=== PATIENT | female | born 1965 | race Caucasian/White ===

== ENCOUNTER 2018-08-14 13:15 | Emergency (ER) | payer SELFPAY ==
[2018-08-14 14:09] LABS: #Basophils 0.1 thou/uL (0.0-0.2); #Eosinphils 0.1 thou/uL (0.0-0.7); #Lymphocytes 2.4 thou/uL (1.20-3.40); #Monocytes 0.5 thou/uL (0.11-0.59); %Basophils 0.8 % (0.0-1.0); %Eosinophils 1.7 % (0.0-10.0); %Lymphocytes 39.8 % (21.0-51.0); %Monocytes 7.9 % (0.0-10.0); %Neutrophils 49.8 % (42.0-75.0); Hemoglobin 12.8 g/dL (12.0-16.0); Mean Corpuscular HGB CONC 32.5 g/dL (32.0-36.0); Mean Corpuscular Hemoglobin 29.6 pg (27.0-31.0); Mean Corpuscular Volume 91.1 fL (78.0-98.0); Mean Platelet Volume 8.5 fL (7.4-10.4); Platelet Count 310 thou/uL (130-400); RBC Distribution Width 12.9 % (11.5-14.5); Red Blood Cell (RBC) Count 4.34 mill/uL (4.20-5.40); White Blood Cell (WBC) Count 6.1 thou/uL (4.8-10.8)
[2018-08-14 14:34] LABS: ALT (SGPT) 13 U/L (8-55); AST (SGOT) 17 U/L (5-34); Albumin 3.7 g/dL (3.5-5.0); Alkaline Phosphatase 87 U/L (40-150); Anion Gap 11 mmol/L (10-20); BUN (Urea Nitrogen) 15 mg/dL (9.8-20.1); Bilirubin, Total 0.4 mg/dL (0.2-1.2); Calc. Creatinine Clearance 0 mL/min (70-130); Calcium 9.2 mg/dL (7.8-10.44); Carbon Dioxide 22 mmol/L (22-29); Chloride 111 mmol/L (98-107); Estimated GFR-MDRD 72; Globulin 3.7 g/dL (2.4-3.5); Glucose 78 mg/dL (70-105); Lipase 51 U/L (8-78); Protein, Total 7.4 g/dL (6.0-8.3); Sodium 140 mmol/L (136-145)
[2018-08-14 15:22] LABS: Bilirubin Negative (Negative); Blood, Urine Negative (Negative); Clarity CLEAR (Clear); Glucose, Urine (Dipstick) Negative (Negative); Leukocyte Small (Negative); Nitrite Negative (Negative); Protein, Urine (Dipstick) Negative (Neg-Trace); Specific Gravity, Urine 1.018 (1.002-1.036); Urobilinogen 0.2 mg/dL (0.2-1.0); pH, Urine 6.5 (5.0-9.0)
[2018-08-14 15:25] LABS: Bacteria/HPF Rare-Few HPF (None Seen); Hyaline Casts/LPF 0-3 HYALINE CAST LPF (0-3 Hyaline); Pathc Cast-AUWi Flag 0.58 (0-2.49); RBC/HPF 0-3 HPF (0-3)
== END 2018-08-14 16:08 | disposition home or self-care (01) ==
LOC: ERS 13:15
DX: R10.11 Right upper quadrant pain (principal); I12.0 Hypertensive chronic kidney disease with stage 5 chronic kidney disease or end stage renal disease; N18.6 End stage renal disease; E11.22 Type 2 diabetes mellitus with diabetic chronic kidney disease; F41.9 Anxiety disorder, unspecified; F31.9 Bipolar disorder, unspecified; F20.9 Schizophrenia, unspecified; F17.210 Nicotine dependence, cigarettes, uncomplicated
CPT/HCPCS: 36415; 80053; 81003; 81015; 83690; 85025; 87086; 99284

== ENCOUNTER 2018-09-17 16:09 | Emergency (ER) | payer SELFPAY ==
[2018-09-17 17:41] LABS: #Eosinphils 0.2 thou/uL (0.0-0.7); #Lymphocytes 1.9 thou/uL (1.20-3.40); #Monocytes 1.3 thou/uL (0.11-0.59); #Neutrophils 11.1 thou/uL (1.40-6.50); %Basophils 0.2 % (0.0-1.0); %Eosinophils 1.4 % (0.0-10.0); %Lymphocytes 13.2 % (21.0-51.0); %Monocytes 8.8 % (0.0-10.0); %Neutrophils 76.5 % (42.0-75.0); Hemoglobin 12.1 g/dL (12.0-16.0); Mean Corpuscular HGB CONC 32.4 g/dL (32.0-36.0); Mean Corpuscular Hemoglobin 29.8 pg (27.0-31.0); Mean Platelet Volume 8.8 fL (7.4-10.4); Platelet Count 211 thou/uL (130-400); RBC Distribution Width 12.1 % (11.5-14.5); Red Blood Cell (RBC) Count 4.07 mill/uL (4.20-5.40); White Blood Cell (WBC) Count 14.5 thou/uL (4.8-10.8)
[2018-09-17 17:55] LABS: ALT (SGPT) 18 U/L (8-55); AST (SGOT) 18 U/L (5-34); Albumin 3.6 g/dL (3.5-5.0); Alkaline Phosphatase 110 U/L (40-150); Anion Gap 15 mmol/L (10-20); BUN (Urea Nitrogen) 20 mg/dL (9.8-20.1); Bilirubin, Total 0.2 mg/dL (0.2-1.2); Calc. Creatinine Clearance 0 mL/min (70-130); Calcium 9.5 mg/dL (7.8-10.44); Carbon Dioxide 23 mmol/L (22-29); Chloride 108 mmol/L (98-107); Estimated GFR-MDRD 63; Globulin 3.9 g/dL (2.4-3.5); Glucose 89 mg/dL (70-105); Potassium 4.6 mmol/L (3.5-5.1); Protein, Total 7.5 g/dL (6.0-8.3); Sodium 141 mmol/L (136-145)
[2018-09-17] MEDS ORDERED: Ondansetron ODT 4 MG TAB ONE (19:01)
--- NOTE | 2018-09-17 20:12 | RAD ---
THREE VIEWS RIGHT FOOT: 09/17/18 HISTORY: Dropped AC unit on foot two months ago. FINDINGS: There is a small avulsion fracture seen involving the medial aspect base of the proximal phalanx of t he second toe. There is a bifid lateral sesamoid bone present. Mild osteoarthritis involving the firs t metatarsophalangeal joint. The Lisfranc joint is normally aligned. There is no additional fracture or dislocation seen. There is a corticated osseous density seen just lateral to the proximal aspect of the cuboid bone which may r epresent a small exostosis. This is not thought to represent an avulsion injury and is not seen on th e opposing images. There is prominent subcutaneous soft tissue swelling at the dorsal aspect of the f oot. No other findings. IMPRESSION: 1. Small avulsion fracture base of the proximal phalanx right second toe. 2. Subcutaneous soft tissue swelling dorsal aspect of the foot. POS: [facility]
== END 2018-09-17 19:11 | disposition home or self-care (01) ==
LOC: ERS 16:09
DX: S92.531A Displaced fracture of distal phalanx of right lesser toe(s), initial encounter for closed fracture (principal); E11.9 Type 2 diabetes mellitus without complications; I13.2 Hypertensive heart and chronic kidney disease with heart failure and with stage 5 chronic kidney disease, or end stage renal disease; I50.9 Heart failure, unspecified; N18.6 End stage renal disease; F41.9 Anxiety disorder, unspecified; F31.9 Bipolar disorder, unspecified; F20.9 Schizophrenia, unspecified; F17.210 Nicotine dependence, cigarettes, uncomplicated; Z79.899 Other long term (current) drug therapy; W20.8XXA Other cause of strike by thrown, projected or falling object, initial encounter
CPT/HCPCS: 36415; 80053; 85025; 85652; 86140; 99281; Q0162

== ENCOUNTER 2018-09-19 14:53 | Inpatient (IN) | payer SELFPAY ==
[2018-09-19] MEDS ORDERED: Morphine 4 MG/ML VIAL ONE (15:46)
[2018-09-19] MEDS ORDERED: Ondansetron PF 4 MG/2 ML Vial ONE (15:46)
--- NOTE | 2018-09-19 16:15 | RAD ---
EXAM: RIGHT FOOT THREE VIEWS: 09/19/18 HISTORY: Infection, recent trauma. COMPARISON: Examination from two days ago, 09/17/18. FINDINGS: Again noted is generalized soft tissue swelling including the dorsal aspect of the foot. Minimally di splaced chip type fracture off the medial base of the proximal phalanx of the second toe. No other ac lone pine fracture or dislocation. IMPRESSION: Stable appearing chip type fracture off the medial base of the proximal phalanx of the second toe wit h dorsal soft tissue swelling and incidental bipartite lateral first metatarsophalangeal joint sesamo id. POS: [facility]
[2018-09-19] MEDS ORDERED: Cefepime 2 GM VIAL ONE (16:42)
[2018-09-19 17:12] LABS: #Eosinphils 0.2 thou/uL (0.0-0.7); #Lymphocytes 1.7 thou/uL (1.20-3.40); #Monocytes 1.3 thou/uL (0.11-0.59); %Basophils 0.1 % (0.0-1.0); %Eosinophils 0.9 % (0.0-10.0); %Lymphocytes 9.4 % (21.0-51.0); %Neutrophils 82.6 % (42.0-75.0); Hemoglobin 12.2 g/dL (12.0-16.0); Mean Corpuscular HGB CONC 32.2 g/dL (32.0-36.0); Mean Corpuscular Hemoglobin 29.4 pg (27.0-31.0); Mean Corpuscular Volume 91.4 fL (78.0-98.0); Mean Platelet Volume 8.7 fL (7.4-10.4); Platelet Count 259 thou/uL (130-400); RBC Distribution Width 12.1 % (11.5-14.5); Red Blood Cell (RBC) Count 4.15 mill/uL (4.20-5.40); White Blood Cell (WBC) Count 18.2 thou/uL (4.8-10.8)
[2018-09-19] MEDS ORDERED: Acetaminophen 325 MG TAB ONE (17:28)
[2018-09-19] MEDS ORDERED: Vancomycin HCl 1.5 GM in Sodium Chloride 0.9% 250 ML 300 ML IVPB SCH (17:30)
[2018-09-19 17:33] LABS: ALT (SGPT) 19 U/L (8-55); AST (SGOT) 16 U/L (5-34); Albumin 3.6 g/dL (3.5-5.0); Alkaline Phosphatase 126 U/L (40-150); Anion Gap 12 mmol/L (10-20); BUN (Urea Nitrogen) 11 mg/dL (9.8-20.1); Bilirubin, Total 0.2 mg/dL (0.2-1.2); CK (CPK) 98 U/L (29-168); Calc. Creatinine Clearance 0 mL/min (70-130); Calcium 9.2 mg/dL (7.8-10.44); Carbon Dioxide 26 mmol/L (22-29); Chloride 105 mmol/L (98-107); Estimated GFR-MDRD 83; Globulin 4.2 g/dL (2.4-3.5); Glucose 98 mg/dL (70-105); Potassium 4.2 mmol/L (3.5-5.1); Protein, Total 7.8 g/dL (6.0-8.3); Sodium 139 mmol/L (136-145)
[2018-09-19] MEDS ORDERED: Guaifenesin DM 100-10/5 ML UDCUP PO PRN (18:17)
[2018-09-19] MEDS ORDERED: Senokot S 8.6-50 MG TAB PO PRN (18:17)
[2018-09-19] MEDS ORDERED: Ondansetron PF 4 MG/2 ML Vial IVP PRN (18:17)
[2018-09-19] MEDS ORDERED: Fentanyl 100 MCG/2 ML VIAL ONE ×2 (18:53→19:45)
--- NOTE | 2018-09-19 19:01 | CON ---
DATE OF CONSULTATION: 09/19/2018 CONSULTING PHYSICIAN: Dr. Barnes. REASON FOR CONSULTATION: Right foot infection. HISTORY OF PRESENT ILLNESS: The patient is a 53-year-old obese white female. She says about 12 days ago, she dropped a dresser on her foot and injured it. At that time, she went to another hospital and was seen. Medications were ordered, but she never got these filled. She is a poor historian and to some extent, noncompliant. She apparently has some history of schizophrenia, but she told me that she was taking no current medications. She apparently is taking Abilify. She was seen here few days ago and there was no significant problem with her foot other than pain. She returned today secondary to increased pain. She now has marked swelling with a large bulla on the plantar aspect of the foot and some swelling across the dorsum as well. CBC in the emergency room reveals elevated white blood cell count of 18,000. X-ray was obtained, does reveal a fracture of the proximal 2nd phalanx. This is a chip fracture of the proximal rather than a bony transection. PAST MEDICAL HISTORY: According to her medical record (she told me none of this). She has a history of schizophrenia, anxiety, bipolar disorder. There is also apparently a history of hypertension and possible diabetes and possibly hepatitis. PAST SURGICAL HISTORY: Tubal ligation and some form of neck incision, although, she cannot tell me why she had this neck incision or exactly what was done. MEDICATIONS: She denied to me taking any medications, but according to other history, she is supposed to be taking Latuda, Abilify, hydrochlorothiazide, gabapentin, lisinopril. ALLERGIES: CLINDAMYCIN, PENICILLIN, AND ASPIRIN. PERSONAL AND SOCIAL HISTORY: She is with 3 children. She currently lives with an aunt of hers. She moved here recently from [place]. She smokes 6 to 7 cigarettes per day. She does not drink alcohol. She tells me she uses marijuana fairly regularly. She currently does not have a job, but was supposed to start a job when she injured her foot. REVIEW OF SYSTEMS: Otherwise unremarkable. She does give some possible history of a seizure disorder, but she has apparently never really been diagnosed with this. FAMILY HISTORY: Noncontributory. PHYSICAL EXAMINATION: VITAL SIGNS: She is tachycardic with a pulse of 110, blood pressure is elevated at 140/100. She is afebrile. GENERAL: She is an obese, somewhat rambling white female, resting in bed. She is alert and cooperative. She complains of appropriate pain in her foot. HEAD, EYES, EARS, NOSE, AND THROAT: Unremarkable. NECK: Supple without mass or tenderness. LUNGS: Clear to auscultation throughout. CARDIAC: Regular rate and rhythm without murmur. ABDOMEN: Obese, but soft and nontender. EXTREMITIES: She has easily palpable pedal pulses bilaterally. She has marked edema on the right foot. There is a discolored bulla on the plantar aspect in the arch of her foot. This appears to be about 4 cm in diameter. There is edema across the dorsum of the foot as well. The tenderness prevents adequate examination of this. ASSESSMENT: The patient with obvious abscess of the right foot. This is the cause of her elevated white blood cell count, tachycardia. She will be admitted to the hospital per the hospitalist service and started on IV antibiotics. I recommended incision and drainage of her foot this evening. Cultures will be obtained of the drained fluid. She will require ongoing wound care and antibiotics. She will have to find a way of getting around without putting weight on the bottom of her foot as it heals. I have discussed all this in detail with the patient as well as potential risks. She understands and agrees to proceed with surgery at this time. Job ID: [id number]
[2018-09-19] MEDS ORDERED: Promethazine HCl 25 MG/ML VIAL SLOW IVP PRN (19:27)
[2018-09-19] MEDS ORDERED: PACU-Morphine 4MG/ML VIAL SLOW IVP PRN (19:27)
[2018-09-19] MEDS ORDERED: Promethazine HCl 25 MG/ML VIAL IM PRN (19:27)
[2018-09-19] MEDS ORDERED: Ondansetron HCl/PF 4 MG/2 ML Vial IVP PRN (19:27)
[2018-09-19] MEDS ORDERED: HYDROmorphone 2 MG/ML VIAL SLOW IVP PRN (19:27)
--- NOTE | 2018-09-19 20:27 | HP ---
REASON FOR ADMISSION: Right foot abscess. HISTORY OF PRESENTING ILLNESS: Patient gives history of dropping a dresser over her right foot in the forefoot area. Patient had come to emergency room on the , but prior to this, she had gone to [facility], where she had a right foot x-ray done, which showed fracture. She had swelling and pain on the . She was diagnosed with a Cholo fracture at the base of second phalanx of right foot. She says she started developing a blister, which has not ruptured yet on the plantar aspect on the second and third metatarsal head area. This has gradually become big and the foot is swollen up to the ankle. She has excruciating pain at present. No fever as such at home. PAST MEDICAL AND SURGICAL HISTORY: History of hypertension, questionable history of hepatitis, schizophrenia, bipolar disorder, and tubal ligation. She has had some neck surgery in the past, which she tells is due to prior penicillin allergy related. CURRENT MEDICATIONS: Patient is on Latuda, hydrochlorothiazide, gabapentin, lisinopril, Ultram p.r.n., and Bactrim twice daily. She goes to [facility] in [place] and we will get accurate med list from there. ALLERGIES: TO ASPIRIN, CLINDAMYCIN, AND PENICILLIN. PERSONAL HISTORY: Smokes seven cigarettes a day. Also, smokes marijuana on a daily basis. Does not abuse other drugs or alcohol. She stays with her aunt, Ms. Hyatt. Patient is , has three children, one male and two females. FAMILY HISTORY: Mother is living, has a history of diabetes and hypertension. Father in his 70s from complications from coronary artery disease and diabetes. CODE STATUS: Full. Power of police clerk is her aunt, Ms. Olena Pham. REVIEW OF SYSTEMS: CONSTITUTIONAL: Negative for weight loss or gain, ability to conduct usual activities. SKIN: Negative for rash, itching. EYES: Negative for double vision, pain. ENT/MOUTH: Negative for nose bleeding, neck stiffness, pain, tenderness. CARDIOVASCULAR: Negative for palpitations, dyspnea on exertion, orthopnea. RESPIRATORY: Negative for shortness of breath, wheezing, cough, hemoptysis, fever or night sweats. GASTROINTESTINAL: Negative for poor appetite, abdominal pain, heartburn, nausea , vomiting, constipation, or diarrhea. GENITOURINARY: Negative for urgency, frequency, dysuria, nocturia. MUSCULOSKELETAL: Negative for pain, swelling. NEUROLOGIC/PSYCHIATRIC: Negative for anxiety, depression. ALLERGY/IMMUNOLOGIC: Negative for skin rash, bleeding tendency. PHYSICAL EXAMINATION: GENERAL: Patient is a 53-year-old female who is currently in pain from her right foot abscess. VITAL SIGNS: Blood pressure 154/90, pulse 110 per minute, respiratory rate 22 per minute, temperature 97.8 degrees Fahrenheit, and saturating 95% on room air. NECK: Supple. No elevated JVD. HEENT: Eyes; extraocular muscles intact. Pupils reacting to light. Oral cavity, mucous membranes are dry. No exudates or congestion. CARDIOVASCULAR: S1 and S2 heard. Regular rhythm. RESPIRATORY: Air entry 1+ bilateral. No rales or rhonchi. ABDOMEN: Soft. Bowel sounds heard. No tenderness, rigidity, or guarding. EXTREMITIES: Right foot, there appears to be a blister which is unruptured with purulent material inside. She also has erythema and edema of the whole foot up to the ankle. Peripheral pulses are 2+ bilateral. No ischemic gangrene of the toes. CENTRAL NERVOUS SYSTEM: No gross focal deficits noted. Patient moves all four extremities. PSYCHIATRIC: No obvious hallucinations or delusions at present. LABORATORY DATA: White count of 18, H and H 12 and 37, platelet count is 259 with 82% neutrophils. Electrolytes stable. BUN 11, creatinine 0.7. Lactic acid 2.5 , serum glucose 98. Liver enzymes within normal limits. Albumin is 3.6. X-RAY: Right foot x-ray done shows stable appearing chip type fracture at the medial base of the proximal phalanx of the second toe with dorsal soft tissue swelling and incidental bipartite lateral first metatarsophalangeal joint sesamoid. She has had a prior x-ray on the same foot on the , which showed small avulsion fracture at the base of the proximal phalanx of the right second toe. Subcutaneous soft tissue swelling on the dorsal aspect of the foot was seen then. CLINICAL IMPRESSION AND PLAN: Patient will be admitted to medical floor for right foot abscess. Dr. Bal is here evaluating patient. She will be going to OR shortly for incision and drainage of the abscess. She will be on vancomycin and cefepime. She has received a dose of cefepime with no allergic reaction as such. She will be closely monitored in view of prior history of severe allergy to penicillin per patient. She is kept n.p.o. for procedure now. She will also be on Morphine and Motrin for pain. We will obtain her home medication list from [facility] in [place]. We will continue her home dosages of Latuda and gabapentin as before. We will hold off on hydrochlorothiazide and lisinopril for now until she comes out of OR. Job ID: [id number] MTDD
[2018-09-19] MEDS ORDERED: Vancomycin HCl 1 GM in Premix Bag 1 BAG IVPB SCH (21:00)
[2018-09-19 21:36] LABS: Lactic Acid 0.8 mmol/L (0.5-2.2)
[2018-09-19 21:40] VITALS: BMI 37.8
[2018-09-19] MEDS: Sodium Chloride 0.9% 1,000 ML IV SCH (21:43)
[2018-09-19] MEDS: Cefepime 1 GM in Sodium Chloride 0.9% 100 ML IVPB SCH (21:46)
[2018-09-19] MEDS: Famotidine 20 MG TAB PO SCH (23:50)
[2018-09-20] MEDS: Vancomycin HCl 1.5 GM in Sodium Chloride 0.9% 250 ML 300 ML IVPB SCH ×2 (06:11→17:55)
[2018-09-20] MEDS: HYDROcodone/Acetaminophen 5/325 mg Tablet PO PRN ×3 (07:25→23:38)
[2018-09-20 07:36] LABS: #Lymphocytes 1.4 thou/uL (1.20-3.40); #Monocytes 0.7 thou/uL (0.11-0.59); #Neutrophils 14.3 thou/uL (1.40-6.50); %Basophils 0.2 % (0.0-1.0); %Eosinophils 0.1 % (0.0-10.0); %Lymphocytes 8.6 % (21.0-51.0); %Monocytes 4.1 % (0.0-10.0); %Neutrophils 87.2 % (42.0-75.0); Hemoglobin 10.4 g/dL (12.0-16.0); Mean Corpuscular HGB CONC 31.9 g/dL (32.0-36.0); Mean Corpuscular Hemoglobin 29.2 pg (27.0-31.0); Mean Corpuscular Volume 91.3 fL (78.0-98.0); Mean Platelet Volume 8.1 fL (7.4-10.4); Platelet Count 230 thou/uL (130-400); RBC Distribution Width 12.1 % (11.5-14.5); Red Blood Cell (RBC) Count 3.56 mill/uL (4.20-5.40); White Blood Cell (WBC) Count 16.4 thou/uL (4.8-10.8)
[2018-09-20 07:41] LABS: Hemoglobin A1c 4.2 % (4.0-6.0)
[2018-09-20 07:53] LABS: Anion Gap 10 mmol/L (10-20); BUN (Urea Nitrogen) 12 mg/dL (9.8-20.1); Calc. Creatinine Clearance 139 mL/min (70-130); Calcium 8.7 mg/dL (7.8-10.44); Carbon Dioxide 21 mmol/L (22-29); Chloride 107 mmol/L (98-107); Estimated GFR-MDRD 87; Glucose 96 mg/dL (70-105); Potassium 4.8 mmol/L (3.5-5.1); Sodium 133 mmol/L (136-145)
[2018-09-20] MEDS: Cefepime 1 GM in Sodium Chloride 0.9% 100 ML IVPB SCH ×2 (09:07→20:44)
[2018-09-20] MEDS: Famotidine 20 MG TAB PO SCH ×2 (09:08→20:46)
[2018-09-20] MEDS: Enoxaparin Sodium 40 MG/0.4 ML SYRINGE SC SCH (09:09)
[2018-09-20] MEDS: Morphine 2 MG/ML SYRINGE SLOW IVP PRN ×2 (09:11→20:45)
--- NOTE | 2018-09-20 15:48 | PDOC.PN ---
- Subjective Encounter Start Date: 09/20/18 Encounter Start Time: 12:40 Subjective: pain is better -: spo2 drops off when she is taking shallow breaths - Objective Resuscitation Status - Order Detail: 09/19/18 18:08 Resuscitation Status Routine Resuscitation Status: FULL: Full Resuscitation MAR Reviewed: Yes Vital Signs & Weight: Vital Signs (12 hours) Temp Pulse Resp BP BP Pulse Ox 09/20/18 12:04 98.0 F 70 20 123/79 93 L 09/20/18 08:00 96 09/20/18 07:49 97.5 F L 83 20 118/77 96 09/20/18 05:26 97.9 F 74 18 109/70 96 Weight Weight 206 lb 8 oz Result Diagrams: 09/20/18 07:23 09/20/18 07:23 Phys Exam - Physical Examination HEENT: PERRLA, moist MMs Neck: no JVD, supple Respiratory: no wheezing, no rales rhonchi+ Cardiovascular: RRR, no significant murmur Gastrointestinal: soft, non-tender, positive bowel sounds Musculoskeletal: pulses present right foot in dressing Neurological: non-focal, moves all 4 limbs Psychiatric: normal affect, A&O x 3 Dx/Plan (1) Foot abscess, right Code(s): L02.611 - CUTANEOUS ABSCESS OF RIGHT FOOT Status: Acute Comment: s/ p debridement (2) HTN (hypertension) Code(s): I10 - ESSENTIAL (PRIMARY) HYPERTENSION Status: Chronic Qualifiers: Hypertension type: essential hypertension Qualified Code(s): I10 - Essential (primary) hypertension (3) Schizoaffective disorder Code(s): F25.9 - SCHIZOAFFECTIVE DISORDER, UNSPECIFIED Status: Chronic Qualifiers: Schizoaffective disorder type: unspecified Qualified Code(s): F25.9 - Schizoaffective disorder, unspecified (4) COPD (chronic obstructive pulmonary disease) Status: Suspected Qualifiers: COPD type: unspecified COPD Qualified Code(s): J44.9 - Chronic obstructive pulmonary disease, unspecified (5) Obesity (BMI 30-39.9) Code(s): E66.9 - OBESITY, UNSPECIFIED Status: Chronic - Plan is on vanc and cefepime, wound care -: dc iv fluids. Motrin, morphine prn -: duonebs, taper and wean off oxygen -: to mobilize as tolerated -: family or [facility] help to get home meds * . Fills 2 non psych meds at [facility]. Will add latuda 40mg daily for now, one dose today until family updates her meds. Review of Systems - Medications/Allergies Allergies/Adverse Reactions: Allergies Allergy/AdvReac Type Severity Reaction Status Date / Time Penicillins Allergy Severe Anaphylaxis Verified 09/19/18 21:28 aspirin Allergy Verified 09/19/18 21:28 clindamycin Allergy Anaphylaxis Verified 09/19/18 21:28 Medications: Current Medications Acetaminophen (Tylenol) 650 mg PO Q4H PRN PRN Reason: Headache/Fever/Mild Pain (1-3) Hydrocodone Bitart/Acetaminophen ([place] 5/325) 1 tab PO Q4H PRN PRN Reason: Moderate Pain (4-6) Last Admin: 09/20/18 07:25 Dose: 1 tab Enoxaparin Sodium (Lovenox) 40 mg SC 0900 [facility] Last Admin: 09/20/18 09:09 Dose: 40 mg Famotidine (Pepcid) 20 mg PO BID [facility] Last Admin: 09/20/18 09:08 Dose: 20 mg Guaifenesin/Dextromethorphan (Robitussin Dm) 15 ml PO Q4H PRN PRN Reason: Cough Sodium Chloride (Normal Saline 0.9%) 1,000 mls @ 70 mls/hr IV .[id number] [facility] Stop: 09/20/18 22:51 Last Admin: 09/19/18 21:43 Dose: Not Given Cefepime HCl 1 gm/ Sodium (Chloride) 100 mls @ 200 mls/hr IVPB Q12HR [facility] Last Admin: 09/20/18 09:07 Dose: 100 mls Vancomycin HCl 1.5 gm/ Sodium (Chloride) 300 mls @ 200 mls/hr IVPB 0600,1800 [facility] Last Admin: 09/20/18 06:11 Dose: 300 mls Ibuprofen (Motrin) 400 mg PO Q6H PRN PRN Reason: Pain Miscellaneous Medication (Pharmacy To Dose) 1 each IVPB PRN PRN PRN Reason: SSSI Morphine Sulfate (Morphine) 2 mg SLOW IVP Q4H PRN PRN Reason: Chest Pain/BP Elevations Last Admin: 09/20/18 09:11 Dose: 2 mg Ondansetron HCl (Zofran) 4 mg IVP Q6H PRN PRN Reason: Nausea/Vomiting Senna/Docusate Sodium (Senokot S) 2 tab PO BID PRN PRN Reason: Constipation
[2018-09-20] MEDS: Sodium Chloride 0.9% 1,000 ML IV SCH (16:52)
--- NOTE | 2018-09-20 17:02 | EKG ---
Test Reason : PRE-OP Blood Pressure : / mmHG Vent. Rate : 108 BPM Atrial Rate : 108 BPM P-R Int : 136 ms QRS Dur : 070 ms QT Int : 324 ms P-R-T Axes : 064 017 033 degrees QTc Int : 434 ms Sinus tachycardia Otherwise normal ECG No previous ECGs available Confirmed by DR. Rakesh DÍAZ ([id number]) on 09/20/2018 5:01:45 PM Referred By: RANDA Confirmed By:DR. Rakesh DÍAZ
[2018-09-21] MEDS: Morphine 2 MG/ML SYRINGE SLOW IVP PRN ×4 (01:22→15:38)
[2018-09-21 05:45] LABS: Vancomycin, Trough 19.3 ug/mL
[2018-09-21] MEDS: Vancomycin HCl 1.5 GM in Sodium Chloride 0.9% 250 ML 300 ML IVPB SCH ×2 (05:45→17:40)
[2018-09-21] MEDS: Cefepime 1 GM in Sodium Chloride 0.9% 100 ML IVPB SCH ×2 (08:08→19:54)
[2018-09-21] MEDS: Famotidine 20 MG TAB PO SCH ×2 (08:11→19:52)
[2018-09-21] MEDS: Enoxaparin Sodium 40 MG/0.4 ML SYRINGE SC SCH (08:11)
[2018-09-21] MEDS: HYDROcodone/Acetaminophen 5/325 mg Tablet PO PRN ×2 (08:25→19:52)
[2018-09-21] MEDS ORDERED: Ziprasidone 20 MG CAP PO SCH (10:45)
--- NOTE | 2018-09-21 13:03 | PDOC.PN ---
- Subjective Encounter Start Date: 09/21/18 Encounter Start Time: 11:30 Subjective: c/o pain in her right foot -: is a bit anxious -: family cant bring or say the exact dose of her meds so far - Objective Resuscitation Status - Order Detail: 09/19/18 18:08 Resuscitation Status Routine Resuscitation Status: FULL: Full Resuscitation MAR Reviewed: Yes Vital Signs & Weight: Vital Signs (12 hours) Temp Pulse Resp BP Pulse Ox 09/21/18 08:07 98 F 90 20 158/111 H 93 L Weight Weight 206 lb 8 oz I&O: 09/20/18 09/21/18 09/22/18 06:59 06:59 06:59 Intake Total 3631 Balance 3631 Result Diagrams: 09/20/18 07:23 09/20/18 07:23 Phys Exam - Physical Examination HEENT: PERRLA, moist MMs Neck: no JVD, supple Respiratory: no wheezing, no rales rhonchi+ Cardiovascular: RRR, no significant murmur Gastrointestinal: soft, non-tender, positive bowel sounds Musculoskeletal: pulses present right foot in dressing Neurological: non-focal, moves all 4 limbs Psychiatric: A&O x 3 Dx/Plan (1) Foot abscess, right Code(s): L02.611 - CUTANEOUS ABSCESS OF RIGHT FOOT Status: Acute Comment: s/ p I&D with debridement (2) HTN (hypertension) Code(s): I10 - ESSENTIAL (PRIMARY) HYPERTENSION Status: Chronic Qualifiers: Hypertension type: essential hypertension Qualified Code(s): I10 - Essential (primary) hypertension (3) Schizoaffective disorder Code(s): F25.9 - SCHIZOAFFECTIVE DISORDER, UNSPECIFIED Status: Chronic Qualifiers: Schizoaffective disorder type: unspecified Qualified Code(s): F25.9 - Schizoaffective disorder, unspecified (4) COPD (chronic obstructive pulmonary disease) Status: Suspected Qualifiers: COPD type: unspecified COPD Qualified Code(s): J44.9 - Chronic obstructive pulmonary disease, unspecified (5) Obesity (BMI 30-39.9) Code(s): E66.9 - OBESITY, UNSPECIFIED Status: Chronic - Plan is off nasal oxygen and saturating well, nebs -: will start geodon, family cant tell dose or bring her latuda for schizo -: continue vanc and cefepime, cultures are growing mrsa -: morphine, motrin prn -: to amb with surgical boot if ok with gen surgery * . Review of Systems - Medications/Allergies Allergies/Adverse Reactions: Allergies Allergy/AdvReac Type Severity Reaction Status Date / Time Penicillins Allergy Severe Anaphylaxis Verified 09/19/18 21:28 aspirin Allergy Verified 09/19/18 21:28 clindamycin Allergy Anaphylaxis Verified 09/19/18 21:28 Medications: Current Medications Acetaminophen (Tylenol) 650 mg PO Q4H PRN PRN Reason: Headache/Fever/Mild Pain (1-3) Hydrocodone Bitart/Acetaminophen ([place] 5/325) 1 tab PO Q4H PRN PRN Reason: Moderate Pain (4-6) Last Admin: 09/21/18 08:25 Dose: 1 tab Enoxaparin Sodium (Lovenox) 40 mg SC 0900 [facility] Last Admin: 09/21/18 08:11 Dose: 40 mg Famotidine (Pepcid) 20 mg PO BID [facility] Last Admin: 09/21/18 08:11 Dose: 20 mg Guaifenesin/Dextromethorphan (Robitussin Dm) 15 ml PO Q4H PRN PRN Reason: Cough Cefepime HCl 1 gm/ Sodium (Chloride) 100 mls @ 200 mls/hr IVPB Q12HR [facility] Last Admin: 09/21/18 08:08 Dose: 100 mls Vancomycin HCl 1.5 gm/ Sodium (Chloride) 300 mls @ 200 mls/hr IVPB 0600,1800 [facility] Last Admin: 09/21/18 05:45 Dose: 300 mls Ibuprofen (Motrin) 400 mg PO Q6H PRN PRN Reason: Pain Miscellaneous Medication (Pharmacy To Dose) 1 each IVPB PRN PRN PRN Reason: SSSI Morphine Sulfate (Morphine) 2 mg SLOW IVP Q4H PRN PRN Reason: Chest Pain/BP Elevations Last Admin: 09/21/18 11:06 Dose: 2 mg Ondansetron HCl (Zofran) 4 mg IVP Q6H PRN PRN Reason: Nausea/Vomiting Senna/Docusate Sodium (Senokot S) 2 tab PO BID PRN PRN Reason: Constipation Ziprasidone (Geodon) [facility]
[2018-09-21] MEDS: Ibuprofen 200 MG TAB PO PRN (16:09)
--- NOTE | 2018-09-21 16:34 | PRG ---
DATE OF SERVICE: 09/21/2018 SUBJECTIVE: Ms. Weller is postoperative day #2 from incision and drainage and debridement of large deep space right foot abscess. Cultures revealed MRSA. She is appropriately receiving vancomycin. She is also on cefepime, but I am not certain why. She complains of foot related pain and tells me that she is not sleeping well. She seems distressed, but much of this seems psychosocial. OBJECTIVE: VITAL SIGNS: On examination, she is afebrile. Pulse is 90 and blood pressure 158/111. EXTREMITIES: Right foot dressing is intact. LABORATORY DATA: She had no labs drawn today. Her hemoglobin from yesterday was 10.4 and her white blood cell count was 16.4. ASSESSMENT: The patient who is status post incision and drainage and irrigation of a large right foot deep space infection. PLAN: Plan is to continue wound care. She has a Taty drain in place. She is on vancomycin treatment for MRSA. I will see her foot wound along with the wound care team tomorrow. She will need to be seen by physical therapy to help figure out how she will get around all this healing. If she cannot find a minimal weightbearing method of getting around, then she will need to go to a wheelchair. Job ID: [id number]
[2018-09-22] MEDS: Ibuprofen 200 MG TAB PO PRN ×2 (00:15→19:44)
[2018-09-22] MEDS: HYDROcodone/Acetaminophen 5/325 mg Tablet PO PRN ×2 (05:28→19:45)
[2018-09-22 05:38] LABS: #Eosinphils 0.2 thou/uL (0.0-0.7); #Lymphocytes 1.7 thou/uL (1.20-3.40); #Monocytes 0.7 thou/uL (0.11-0.59); #Neutrophils 4.6 thou/uL (1.40-6.50); %Basophils 0.5 % (0.0-1.0); %Eosinophils 3.2 % (0.0-10.0); %Lymphocytes 23.9 % (21.0-51.0); %Monocytes 9.8 % (0.0-10.0); %Neutrophils 62.6 % (42.0-75.0); Hemoglobin 12.1 g/dL (12.0-16.0); Mean Corpuscular HGB CONC 32.1 g/dL (32.0-36.0); Mean Corpuscular Hemoglobin 29.2 pg (27.0-31.0); Mean Corpuscular Volume 90.9 fL (78.0-98.0); Mean Platelet Volume 7.5 fL (7.4-10.4); Platelet Count 306 thou/uL (130-400); RBC Distribution Width 12.1 % (11.5-14.5); Red Blood Cell (RBC) Count 4.13 mill/uL (4.20-5.40); White Blood Cell (WBC) Count 7.3 thou/uL (4.8-10.8)
[2018-09-22 05:56] LABS: Vancomycin, Trough 18.5 ug/mL
[2018-09-22] MEDS: Vancomycin HCl 1.5 GM in Sodium Chloride 0.9% 250 ML 300 ML IVPB SCH ×2 (06:26→17:48)
--- NOTE | 2018-09-22 06:39 | OP ---
DATE OF PROCEDURE: 09/19/2018 PREOPERATIVE DIAGNOSIS: Right foot abscess. POSTOPERATIVE DIAGNOSIS: Extensive right foot abscess with a large volume of purulent material in the deep space of the right foot. PROCEDURE PERFORMED: Incision and drainage of right foot abscess with debridement of nonviable tissue, extensive irrigation, and placement of a Taty drain. ANESTHESIA: General endotracheal. INDICATIONS FOR PROCEDURE: The patient is a 53-year-old white female. She presents with a large bulging abscess on the plantar aspect of her right foot. She had apparently presented a couple of weeks earlier after sustaining an injury to her right foot and was diagnosed with a fracture of the proximal right second phalanx. She was taken to the operating room at this time for incision and drainage. DESCRIPTION OF OPERATION: Informed consent was obtained. The patient was taken to the operating room, where general anesthesia was obtained with the patient in supine position. Right foot was prepped with ChloraPrep and draped in sterile fashion. A stab incision was created over the bulging bulla on the plantar aspect of the right foot. There was immediate egress of large volume of creamy purulent material. This was expressed and the overlying devitalized tissue was sharply debrided. The digital exploration was carried into the deep space with the bulk of the abscess was, deep to the plantar fascia. The abscess pointed up towards the anterior/dorsal aspect of the foot as well. I was able to identify an area with minimal overlying skin and this was incised on the dorsum of the foot. I passed a half-inch [place] drain between the plantar and dorsal aspect and sutured the drain to itself with a 3-0 nylon suture. I gauze debrided the devitalized tissue of the skin of plantar aspect. There was no bleeding from this site. I debrided the nonviable underlying tissue. The area was then extensively irrigated with peroxide, after cultures were obtained. I packed the plantar aspect of the wound with gauze and then placed a circumferential gauze dressing. There were no complications. Blood loss was minimal. The patient tolerated the procedure well, and was taken to the recovery room in stable condition. Job ID: [id number]
[2018-09-22] MEDS: Morphine 2 MG/ML SYRINGE SLOW IVP PRN ×2 (08:36→14:27)
[2018-09-22] MEDS: Enoxaparin Sodium 40 MG/0.4 ML SYRINGE SC SCH (08:38)
[2018-09-22] MEDS: Ziprasidone 20 MG CAP PO SCH (08:38)
[2018-09-22] MEDS: Famotidine 20 MG TAB PO SCH ×2 (08:38→19:49)
--- NOTE | 2018-09-22 09:31 | PRG ---
DATE OF SERVICE: 09/22/2018 SUBJECTIVE: Ms. Weller is postoperative day #3 from an incision and drainage and debridement of a large deep space right foot abscess. Cultures reveal MRSA. She is receiving vancomycin. I examined her today with the Wound Care Team. She still has obvious discomfort in her right foot. OBJECTIVE: VITAL SIGNS: She is afebrile. Pulse is 84 and blood pressure 175/99. EXTREMITIES: Examination is focused upon her right foot. It is still markedly swollen. The [place] drain is in place. There is no obvious purulent drainage associated with the wound. LABORATORY DATA: Laboratory studies revealed that her white blood cell count is normalized, it is now 7.3 with a normal differential and hemoglobin is 12.1. The cultures, as mentioned reveal only MRSA. ASSESSMENT AND PLAN: The patient with severe infection of the right foot. This appears to be appropriately surgically drained at this point. I would certainly leave the [place] drain in for at least another week and up to a couple of weeks. She will require ongoing wound care for this, although it is primarily external wound care. She will need to continue IV antibiotics probably for a prolonged period of time. I would consider obtaining an Infectious Disease consultation for recommendations regarding antibiotics in the length of treatment. She should also minimize weightbearing on the foot to allow it to heal appropriately. Of note, her hemoglobin A1c is 4.2, therefore, diabetes does not appear to play a role in this disease process. Job ID: [id number]
[2018-09-22] MEDS: Acetaminophen 325 MG TAB PO PRN (09:36)
--- NOTE | 2018-09-22 12:57 | PDOC.PN ---
- Subjective Encounter Start Date: 09/22/18 Encounter Start Time: 12:00 Subjective: pain is slightly better -: her anxiety is better as well - Objective Resuscitation Status - Order Detail: 09/19/18 18:08 Resuscitation Status Routine Resuscitation Status: FULL: Full Resuscitation MAR Reviewed: Yes Vital Signs & Weight: Vital Signs (12 hours) Temp Pulse Resp BP Pulse Ox 09/22/18 08:34 96 09/22/18 08:00 98.0 F 84 20 175/99 H 96 Weight Weight 206 lb 8 oz I&O: 09/21/18 09/22/18 09/23/18 06:59 06:59 06:59 Intake Total 3631 2800 Output Total 1500 Balance 3631 1300 Result Diagrams: 09/22/18 05:30 09/20/18 07:23 Phys Exam - Physical Examination HEENT: PERRLA, moist MMs Neck: no JVD, supple Respiratory: no wheezing, no rales Cardiovascular: RRR, no significant murmur Gastrointestinal: soft, non-tender, positive bowel sounds Musculoskeletal: pulses present right foot in dressing Neurological: non-focal, moves all 4 limbs Psychiatric: A&O x 3 Dx/Plan (1) Foot abscess, right Code(s): L02.611 - CUTANEOUS ABSCESS OF RIGHT FOOT Status: Acute Comment: s/ p I&D with debridement (2) HTN (hypertension) Code(s): I10 - ESSENTIAL (PRIMARY) HYPERTENSION Status: Chronic Qualifiers: Hypertension type: essential hypertension Qualified Code(s): I10 - Essential (primary) hypertension (3) Schizoaffective disorder Code(s): F25.9 - SCHIZOAFFECTIVE DISORDER, UNSPECIFIED Status: Chronic Qualifiers: Schizoaffective disorder type: unspecified Qualified Code(s): F25.9 - Schizoaffective disorder, unspecified (4) COPD (chronic obstructive pulmonary disease) Status: Suspected Qualifiers: COPD type: unspecified COPD Qualified Code(s): J44.9 - Chronic obstructive pulmonary disease, unspecified (5) Obesity (BMI 30-39.9) Code(s): E66.9 - OBESITY, UNSPECIFIED Status: Chronic - Plan is on vanc, off cefepime, cultures are growing mrsa -: prefer anaerobic coverage with flagyl if ok with ID -: is stable on geodon daily -: morphine prn, motrin, nebs prn -: to mobilize with PT per gen surgery adv * . Review of Systems - Medications/Allergies Allergies/Adverse Reactions: Allergies Allergy/AdvReac Type Severity Reaction Status Date / Time Penicillins Allergy Severe Anaphylaxis Verified 09/19/18 21:28 aspirin Allergy Verified 09/19/18 21:28 clindamycin Allergy Anaphylaxis Verified 09/19/18 21:28 Medications: Current Medications Acetaminophen (Tylenol) 650 mg PO Q4H PRN PRN Reason: Headache/Fever/Mild Pain (1-3) Last Admin: 09/22/18 09:36 Dose: 650 mg Hydrocodone Bitart/Acetaminophen ([place] 5/325) 1 tab PO Q4H PRN PRN Reason: Moderate Pain (4-6) Last Admin: 09/22/18 05:28 Dose: 1 tab Enoxaparin Sodium (Lovenox) 40 mg SC 0900 [facility] Last Admin: 09/22/18 08:38 Dose: 40 mg Famotidine (Pepcid) 20 mg PO BID [facility] Last Admin: 09/22/18 08:38 Dose: 20 mg Guaifenesin/Dextromethorphan (Robitussin Dm) 15 ml PO Q4H PRN PRN Reason: Cough Vancomycin HCl 1.5 gm/ Sodium (Chloride) 300 mls @ 200 mls/hr IVPB 0600,1800 [facility] Last Admin: 09/22/18 06:26 Dose: 300 mls Ibuprofen (Motrin) 400 mg PO Q6H PRN PRN Reason: Pain Last Admin: 09/22/18 00:15 Dose: 400 mg Miscellaneous Medication (Pharmacy To Dose) 1 each IVPB PRN PRN PRN Reason: SSSI Morphine Sulfate (Morphine) 2 mg SLOW IVP Q4H PRN PRN Reason: Chest Pain/BP Elevations Last Admin: 09/22/18 08:36 Dose: 2 mg Ondansetron HCl (Zofran) 4 mg IVP Q6H PRN PRN Reason: Nausea/Vomiting Senna/Docusate Sodium (Senokot S) 2 tab PO BID PRN PRN Reason: Constipation Ziprasidone (Geodon) 20 mg PO QAM-WM [facility] Last Admin: 09/22/18 08:38 Dose: 20 mg
[2018-09-22 17:40] LABS: Syphilis Antibody Nonreactive (Nonreactive); Syphilis Antibody Index 0.04 S/CO (<1.00 Non-Reactive)
[2018-09-22 17:45] LABS: HIV (1/2) Antibody/Antigen Non-Reactive (NonReactive); HIV 1/2 INDEX 0.09 S/CO (<1.00)
[2018-09-22 17:48] LABS: Hep C IgG Ab Reflex HepC Qnt (NonReactive); Hep C Index 8.44 S/CO (0-0.79)
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
[2018-09-23] MEDS: HYDROcodone/Acetaminophen 5/325 mg Tablet PO PRN ×4 (00:09→23:10)
[2018-09-23] MEDS: Vancomycin HCl 1.5 GM in Sodium Chloride 0.9% 250 ML 300 ML IVPB SCH ×2 (05:07→19:09)
[2018-09-23] MEDS: Ibuprofen 200 MG TAB PO PRN ×3 (05:07→23:10)
[2018-09-23] MEDS: Ziprasidone 20 MG CAP PO SCH (08:55)
[2018-09-23] MEDS: Famotidine 20 MG TAB PO SCH ×2 (08:56→20:20)
[2018-09-23] MEDS: Enoxaparin Sodium 40 MG/0.4 ML SYRINGE SC SCH (08:57)
[2018-09-23] MEDS: Morphine 2 MG/ML SYRINGE SLOW IVP PRN (08:57)
--- NOTE | 2018-09-23 11:31 | RAD ---
TWO VIEWS SOFT TISSUE NECK: HISTORY: Patient with a history of metal in neck. Evaluate prior to MRI. FINDINGS: AP and lateral views soft tissue neck obtained. Radiopaque surgical clips seen in the left upper soft tissue neck. These are surgical clips. No juan dence of other metallic density lesions or abnormalities seen. Changes of spondylosis seen at C5-6 c ompatible with cervical degenerative changes. IMPRESSION: Left neck surgical clips. POS: LUBNA
--- NOTE | 2018-09-23 12:43 | MRI ---
MRI RIGHT FOOT WITH AND WITHOUT IV CONTRAST: INDICATIONS: History of right foot infection and recent trauma. COMPARISON: Radiographs of right foot dated 09/17/2018. FINDINGS: There is a surgical drain seen between the 1st and 2nd digit, intermetatarsal space. There is a liz pherally enhancing fluid collection seen within the intrinsic foot musculature, just plantar to the f irst digit and second digit intermetatarsal space, measuring 2.7 x 2.5 cm. There is diffuse myositis involving the plantar intrinsic foot musculature. There is cellulitis involving the forefoot and mi dfoot. There is increased T2 signal with abnormal enhancement involving the shaft and the proximal m etatarsals base of the 4th digit, without a visible fracture line. No additional drainable fluid col lection is evident. The visualized plantar and dorsal tendons appear intact. IMPRESSION: 1. Residual abscess seen within the intrinsic musculature of the plantar aspect of the forefoot, jus t subjacent to the 1st and 2nd digit intermetatarsal space. The abscess does appear to communicate w ith the drainage tube. 2. Extensive cellulitis and myositis of the midfoot and forefoot. 3. Abnormal signal and enhancement involving the proximal shaft and base of the 4th metatarsal may r eflect some residual osteitis from the patient's prior trauma; however, early osteomyelitis can have a similar appearance. 4. Continued followup is recommended. POS: LUBNA
--- NOTE | 2018-09-23 13:38 | PDOC.PN ---
- Subjective Encounter Start Date: 09/23/18 Encounter Start Time: 12:00 Subjective: pain is better this am, still hurts to move ankle/foot -: has not ambulated yet - Objective Resuscitation Status - Order Detail: 09/19/18 18:08 Resuscitation Status Routine Resuscitation Status: FULL: Full Resuscitation MAR Reviewed: Yes Vital Signs & Weight: Vital Signs (12 hours) Temp Pulse Resp BP Pulse Ox 09/23/18 12:15 97.3 F L 83 20 152/89 H 97 09/23/18 08:55 100 09/23/18 08:00 98.0 F 74 16 159/112 H 100 Weight Weight 206 lb 8 oz I&O: 09/22/18 09/23/18 09/24/18 06:59 06:59 06:59 Intake Total 2800 1000 Output Total 1500 1200 Balance 1300 -200 Result Diagrams: 09/22/18 05:30 09/20/18 07:23 Phys Exam - Physical Examination HEENT: PERRLA, moist MMs Neck: no JVD, supple Respiratory: no wheezing, no rales Cardiovascular: RRR, no significant murmur Gastrointestinal: soft, non-tender, positive bowel sounds Musculoskeletal: pulses present right foot in dressing Neurological: non-focal, moves all 4 limbs Psychiatric: normal affect, A&O x 3 Dx/Plan (1) Foot abscess, right Code(s): L02.611 - CUTANEOUS ABSCESS OF RIGHT FOOT Status: Acute Comment: s/ p I&D with debridement (2) HTN (hypertension) Code(s): I10 - ESSENTIAL (PRIMARY) HYPERTENSION Status: Chronic Qualifiers: Hypertension type: essential hypertension Qualified Code(s): I10 - Essential (primary) hypertension (3) Schizoaffective disorder Code(s): F25.9 - SCHIZOAFFECTIVE DISORDER, UNSPECIFIED Status: Chronic Qualifiers: Schizoaffective disorder type: unspecified Qualified Code(s): F25.9 - Schizoaffective disorder, unspecified (4) COPD (chronic obstructive pulmonary disease) Status: Suspected Qualifiers: COPD type: unspecified COPD Qualified Code(s): J44.9 - Chronic obstructive pulmonary disease, unspecified (5) Obesity (BMI 30-39.9) Code(s): E66.9 - OBESITY, UNSPECIFIED Status: Chronic (6) Hepatitis C Code(s): B19.20 - UNSPECIFIED VIRAL HEPATITIS C WITHOUT HEPATIC COMA Status: Suspected Qualifiers: Viral hepatitis chronicity: chronic Hepatic coma status: without hepatic coma Qualified Code(s): B18.2 - Chronic viral hepatitis C - Plan MRI results noted, await surg opinion -: to mobilize per gen surg advice -: ID adv for outpt antibiotics -: on vancomycin, geodon, motrin, morphine prn, nebs -: hemostable * . Review of Systems - Medications/Allergies Allergies/Adverse Reactions: Allergies Allergy/AdvReac Type Severity Reaction Status Date / Time Penicillins Allergy Severe Anaphylaxis Verified 09/19/18 21:28 aspirin Allergy Verified 09/19/18 21:28 clindamycin Allergy Anaphylaxis Verified 09/19/18 21:28 Medications: Current Medications Acetaminophen (Tylenol) 650 mg PO Q4H PRN PRN Reason: Headache/Fever/Mild Pain (1-3) Last Admin: 09/22/18 09:36 Dose: 650 mg Hydrocodone Bitart/Acetaminophen ([place] 5/325) 1 tab PO Q4H PRN PRN Reason: Moderate Pain (4-6) Last Admin: 09/23/18 12:12 Dose: 1 tab Enoxaparin Sodium (Lovenox) 40 mg SC 0900 [facility] Last Admin: 09/23/18 08:57 Dose: 40 mg Famotidine (Pepcid) 20 mg PO BID [facility] Last Admin: 09/23/18 08:56 Dose: 20 mg Guaifenesin/Dextromethorphan (Robitussin Dm) 15 ml PO Q4H PRN PRN Reason: Cough Vancomycin HCl 1.5 gm/ Sodium (Chloride) 300 mls @ 200 mls/hr IVPB 0600,1800 [facility] Last Admin: 09/23/18 05:07 Dose: 300 mls Ibuprofen (Motrin) 400 mg PO Q6H PRN PRN Reason: Pain Last Admin: 09/23/18 05:07 Dose: 400 mg Miscellaneous Medication (Pharmacy To Dose) 1 each IVPB PRN PRN PRN Reason: SSSI Morphine Sulfate (Morphine) 2 mg SLOW IVP Q4H PRN PRN Reason: Chest Pain/BP Elevations Last Admin: 09/23/18 08:57 Dose: 2 mg Ondansetron HCl (Zofran) 4 mg IVP Q6H PRN PRN Reason: Nausea/Vomiting Last Admin: 09/23/18 08:56 Dose: 4 mg Senna/Docusate Sodium (Senokot S) 2 tab PO BID PRN PRN Reason: Constipation Ziprasidone (Geodon) 20 mg PO QAM-WM [facility] Last Admin: 09/23/18 08:55 Dose: 20 mg
[2018-09-23 17:28] LABS: Vancomycin, Trough 22.9 ug/mL
--- NOTE | 2018-09-23 18:10 | PRG ---
DATE OF SERVICE: 09/23/2018 SUBJECTIVE: Ms. Welelr is about the same, still having quite a bit of pain in the foot area. No other symptoms at this point in time. OBJECTIVE: VITAL SIGNS: She is afebrile. LUNGS: Clear. ABDOMEN: Soft. HEART: S1 and S2, regular rate. EXTREMITIES: Right foot with about 30% improvement in erythema, still quite deep wound there with drain in place. LABORATORY DATA: White cell count 7.3, hemoglobin 12, platelets 306. MRI showed the fracture at the base of the second toe, but no other evidence of osteomyelitis or tenosynovitis. She has some myositis in the abscess cavity. ASSESSMENT AND DISCUSSION: Schizoaffective disorder with injury of right foot with an abscess development, which is pretty deep and mid foot area has had surgical debridement. She also has a fracture there at the base of the second toe, but I do not think that there is any evidence of osteomyelitis at this point in time. Continue IV vancomycin. The only organism retrieved from the site was MRSA. Eventually, we will consider transition to oral therapy once there is further improvement. She may need continuation of protracted IV therapy though. Job ID: [id number]
[2018-09-23] MEDS: Vancomycin HCl 1.25 GM in Sodium Chloride 0.9% 250 ML 250 ML IVPB SCH (20:23)
[2018-09-24] MEDS: HYDROcodone/Acetaminophen 5/325 mg Tablet PO PRN ×3 (05:41→22:58)
[2018-09-24] MEDS: Ibuprofen 200 MG TAB PO PRN ×3 (05:42→20:11)
[2018-09-24] MEDS: Morphine 2 MG/ML SYRINGE SLOW IVP PRN ×2 (09:27→13:05)
[2018-09-24] MEDS: Ziprasidone 20 MG CAP PO SCH (09:33)
[2018-09-24] MEDS: Famotidine 20 MG TAB PO SCH ×2 (09:33→20:10)
[2018-09-24] MEDS: Enoxaparin Sodium 40 MG/0.4 ML SYRINGE SC SCH (09:33)
[2018-09-24] MEDS: Vancomycin HCl 1.25 GM in Sodium Chloride 0.9% 250 ML 250 ML IVPB SCH ×2 (11:10→20:11)
--- NOTE | 2018-09-24 18:08 | PDOC.PN ---
- Subjective Encounter Start Date: 09/24/18 Encounter Start Time: 09:40 Pt seen for followup re: foot abscess. c/o foot pain. No fevers or chills - Objective Resuscitation Status - Order Detail: 09/19/18 18:08 Resuscitation Status Routine Resuscitation Status: FULL: Full Resuscitation MAR Reviewed: Yes Vital Signs & Weight: Vital Signs (12 hours) Temp Pulse Resp BP Pulse Ox 09/24/18 09:40 97 09/24/18 08:00 97.3 F L 79 18 138/89 97 Weight Weight 206 lb 8 oz I&O: 09/23/18 09/24/18 09/25/18 06:59 06:59 06:59 Intake Total 1000 2770 Output Total 1200 650 Balance -200 2120 Result Diagrams: 09/22/18 05:30 09/20/18 07:23 Additional Labs: Labs reviewed by me Phys Exam - Physical Examination Constitutional: NAD HEENT: moist MMs Neck: supple Respiratory: clear to auscultation bilateral Cardiovascular: RRR Gastrointestinal: soft Neurological: moves all 4 limbs Psychiatric: normal affect Dx/Plan (1) Foot abscess, right Code(s): L02.611 - CUTANEOUS ABSCESS OF RIGHT FOOT Status: Acute Comment: s/ p I&D with debridement, continue IV antibiotics as below (2) HTN (hypertension) Code(s): I10 - ESSENTIAL (PRIMARY) HYPERTENSION Status: Chronic Qualifiers: Hypertension type: essential hypertension Qualified Code(s): I10 - Essential (primary) hypertension Comment: controlled (3) Schizoaffective disorder Code(s): F25.9 - SCHIZOAFFECTIVE DISORDER, UNSPECIFIED Status: Chronic Qualifiers: Schizoaffective disorder type: unspecified Qualified Code(s): F25.9 - Schizoaffective disorder, unspecified Comment: stable (4) COPD (chronic obstructive pulmonary disease) Status: Suspected Qualifiers: COPD type: unspecified COPD Qualified Code(s): J44.9 - Chronic obstructive pulmonary disease, unspecified - Plan * . Review of Systems - Review of Systems Cardiovascular: negative: chest pain, palpitations, orthopnea, paroxysmal nocturnal dyspnea, edema, light headedness, other Gastrointestinal: negative: Nausea, Vomiting, Abdominal Pain, Diarrhea, Constipation, Melena, Hematochezia Musculoskeletal: Foot Pain - Medications/Allergies Allergies/Adverse Reactions: Allergies Allergy/AdvReac Type Severity Reaction Status Date / Time Penicillins Allergy Severe Anaphylaxis Verified 09/19/18 21:28 aspirin Allergy Verified 09/19/18 21:28 clindamycin Allergy Anaphylaxis Verified 09/19/18 21:28 Medications: Current Medications Acetaminophen (Tylenol) 650 mg PO Q4H PRN PRN Reason: Headache/Fever/Mild Pain (1-3) Last Admin: 09/22/18 09:36 Dose: 650 mg Hydrocodone Bitart/Acetaminophen ([place] 5/325) 1 tab PO Q4H PRN PRN Reason: Moderate Pain (4-6) Last Admin: 09/24/18 05:41 Dose: 1 tab Enoxaparin Sodium (Lovenox) 40 mg SC 0900 [facility] Last Admin: 09/24/18 09:33 Dose: 40 mg Famotidine (Pepcid) 20 mg PO BID [facility] Last Admin: 09/24/18 09:33 Dose: 20 mg Guaifenesin/Dextromethorphan (Robitussin Dm) 15 ml PO Q4H PRN PRN Reason: Cough Vancomycin HCl 1.25 gm/ Sodium (Chloride) 250 mls @ 166.667 mls/hr IVPB Q12HR [facility] Last Admin: 09/24/18 11:10 Dose: 250 mls Ibuprofen (Motrin) 400 mg PO Q6H PRN PRN Reason: Pain Last Admin: 09/24/18 11:53 Dose: 400 mg Miscellaneous Medication (Pharmacy To Dose) 1 each IVPB PRN PRN PRN Reason: SSSI Morphine Sulfate (Morphine) 2 mg SLOW IVP Q4H PRN PRN Reason: Chest Pain/BP Elevations Last Admin: 09/24/18 13:05 Dose: 2 mg Ondansetron HCl (Zofran) 4 mg IVP Q6H PRN PRN Reason: Nausea/Vomiting Last Admin: 09/23/18 08:56 Dose: 4 mg Senna/Docusate Sodium (Senokot S) 2 tab PO BID PRN PRN Reason: Constipation Ziprasidone (Geodon) 20 mg PO QA-[facility] Last Admin: 09/24/18 09:33 Dose: 20 mg
--- NOTE | 2018-09-24 22:31 | PRG ---
DATE OF SERVICE: 09/24/2018 SUBJECTIVE: Ms. Weller is postoperative day #5 from incision and drainage and debridement of a large deep space right foot abscess. Cultures reveal MRSA. She remains on vancomycin. MRI obtained yesterday reveals no definite evidence of osteomyelitis. There is no apparent undrained infection within the foot. The patient notes that her pain is better in her foot today than it was a couple days ago. On examination, she remains afebrile. Vital signs within normal limits. Foot is examined. The swelling appears to be somewhat improved over the past couple of days. There is no obvious purulent drainage. The [place] drain is intact. LABS: She has had no labs since , which revealed a normal white blood cell count and hemoglobin of 12. ASSESSMENT: The patient with severe methicillin-resistant Staphylococcus aureus abscess of right foot. Continue [place] drain and IV antibiotics. She will require a prolonged course of IV antibiotics and this is being managed by Dr. Baker. The [place] drain will need to be in place for at least 2 weeks. Job ID: [id number]
[2018-09-25] MEDS: HYDROcodone/Acetaminophen 5/325 mg Tablet PO PRN ×3 (04:11→19:48)
[2018-09-25] MEDS: Ibuprofen 200 MG TAB PO PRN (04:11)
[2018-09-25] MEDS: Ziprasidone 20 MG CAP PO SCH (08:07)
[2018-09-25] MEDS: Famotidine 20 MG TAB PO SCH ×2 (08:07→19:48)
[2018-09-25] MEDS: Vancomycin HCl 1.25 GM in Sodium Chloride 0.9% 250 ML 250 ML IVPB SCH ×2 (08:08→19:57)
[2018-09-25] MEDS: Enoxaparin Sodium 40 MG/0.4 ML SYRINGE SC SCH (08:08)
[2018-09-25] MEDS: Morphine 2 MG/ML SYRINGE SLOW IVP PRN (10:14)
--- NOTE | 2018-09-25 15:20 | PRG ---
DATE OF SERVICE: 09/25/2018 SUBJECTIVE: Feeling better, less pain. No respiratory symptoms or abdominal pain. No diarrhea. OBJECTIVE: VITAL SIGNS: T-max 98.6, blood pressure 130/90, and pulse 79. GENERAL: Appears in no distress HEENT: Complains of jaw locking intermittently, but no obvious findings in the objective exam. TMJs are okay. LUNGS: Symmetric air entry. Clear breath sounds. HEART: S1 and S2. Regular rate. ABDOMEN: Soft and not distended. EXTREMITIES: The right foot with marked decrease in erythema, still with the packing and the [place] drain [id number]. LABORATORY DATA: White cell count 7.3, hemoglobin 12, and platelets 306. Creatinine 0.71. Microbiology final with MRSA. ASSESSMENT AND DISCUSSION: Schizoaffective disorder and injury to right foot with abscess, status post incision and drainage. There is also a small fracture at the base of the second toe. Marked improvement in inflammatory changes. The patient is to continue on IV vancomycin. Eventual transition to oral antimicrobial therapy, probably a combination of rifampin and doxycycline for at least 2 or 3 weeks. Job ID: [id number]
--- NOTE | 2018-09-25 15:35 | PDOC.PN ---
- Subjective Encounter Start Date: 09/25/18 Encounter Start Time: 15:34 Subjective: Admitted with R foot abscess. Feeling better. No fever. - Objective Resuscitation Status - Order Detail: 09/19/18 18:08 Resuscitation Status Routine Resuscitation Status: FULL: Full Resuscitation Vital Signs & Weight: Vital Signs (12 hours) Temp Pulse Resp BP Pulse Ox 09/25/18 08:12 98 F 79 20 135/91 H 97 09/25/18 08:09 96 Weight Admit Weight 206 lb 8 oz Weight 206 lb 8 oz I&O: 09/24/18 09/25/18 09/26/18 06:59 06:59 06:59 Intake Total 2770 2580 Output Total 650 2850 Balance 2120 -270 Result Diagrams: 09/22/18 05:30 09/20/18 07:23 Phys Exam - Physical Examination Constitutional: NAD HEENT: PERRLA, moist MMs Neck: no JVD, supple Respiratory: no wheezing, no rales, no rhonchi, clear to auscultation bilateral Cardiovascular: RRR, no significant murmur Gastrointestinal: soft, non-tender, no distention, positive bowel sounds Musculoskeletal: no edema, pulses present Right foot dressing noted. No erythema Neurological: moves all 4 limbs Psychiatric: A&O x 3 Dx/Plan (1) MRSA (methicillin resistant Staphylococcus aureus) infection Code(s): A49.02 - METHICILLIN RESIS STAPH INFECTION, UNSP SITE Status: Acute (2) Foot abscess, right Code(s): L02.611 - CUTANEOUS ABSCESS OF RIGHT FOOT Status: Acute Comment: s/ p I&D with debridement, continue IV antibiotics as below (3) HTN (hypertension) Code(s): I10 - ESSENTIAL (PRIMARY) HYPERTENSION Status: Chronic Qualifiers: Hypertension type: essential hypertension Qualified Code(s): I10 - Essential (primary) hypertension Comment: controlled (4) Obesity (BMI 30-39.9) Code(s): E66.9 - OBESITY, UNSPECIFIED Status: Chronic (5) Schizoaffective disorder Code(s): F25.9 - SCHIZOAFFECTIVE DISORDER, UNSPECIFIED Status: Chronic Qualifiers: Schizoaffective disorder type: unspecified Qualified Code(s): F25.9 - Schizoaffective disorder, unspecified Comment: stable (6) COPD (chronic obstructive pulmonary disease) Status: Suspected Qualifiers: COPD type: unspecified COPD Qualified Code(s): J44.9 - Chronic obstructive pulmonary disease, unspecified (7) Hepatitis C Code(s): B19.20 - UNSPECIFIED VIRAL HEPATITIS C WITHOUT HEPATIC COMA Status: Suspected Qualifiers: Viral hepatitis chronicity: chronic Hepatic coma status: without hepatic coma Qualified Code(s): B18.2 - Chronic viral hepatitis C (8) Toe fracture, right Code(s): S92.911A - UNSP FRACTURE OF RIGHT TOE(S), INIT FOR CLOS FX Status: Acute (9) Seizure Code(s): R56.9 - UNSPECIFIED CONVULSIONS Status: Acute - Plan Continue IV vancomycin. -: Abx choice route and duration as per ID. -: Continue other treatments. -: get cbc and BMP in the am. * .
[2018-09-25 22:08] LABS: HCV log10 6.968 (.); Hep C PCR-Quant 9300000 IU/mL (.)
[2018-09-26] MEDS: HYDROcodone/Acetaminophen 5/325 mg Tablet PO PRN ×3 (06:08→23:50)
[2018-09-26 06:33] LABS: #Basophils 0.1 thou/uL (0.0-0.2); #Eosinphils 0.3 thou/uL (0.0-0.7); #Lymphocytes 2.4 thou/uL (1.20-3.40); #Monocytes 0.7 thou/uL (0.11-0.59); #Neutrophils 3.6 thou/uL (1.40-6.50); %Basophils 0.8 % (0.0-1.0); %Eosinophils 3.9 % (0.0-10.0); %Lymphocytes 34.3 % (21.0-51.0); %Monocytes 9.7 % (0.0-10.0); %Neutrophils 51.4 % (42.0-75.0); Hemoglobin 13.5 g/dL (12.0-16.0); Mean Corpuscular HGB CONC 31.1 g/dL (32.0-36.0); Mean Corpuscular Hemoglobin 28.5 pg (27.0-31.0); Mean Corpuscular Volume 91.7 fL (78.0-98.0); Mean Platelet Volume 7.8 fL (7.4-10.4); Platelet Count 337 thou/uL (130-400); RBC Distribution Width 12.6 % (11.5-14.5); Red Blood Cell (RBC) Count 4.72 mill/uL (4.20-5.40); White Blood Cell (WBC) Count 6.9 thou/uL (4.8-10.8)
[2018-09-26 06:40] LABS: Anion Gap 10 mmol/L (10-20); BUN (Urea Nitrogen) 15 mg/dL (9.8-20.1); Calc. Creatinine Clearance 104 mL/min (70-130); Calcium 9.5 mg/dL (7.8-10.44); Carbon Dioxide 26 mmol/L (22-29); Chloride 108 mmol/L (98-107); Estimated GFR-MDRD 62; Glucose 86 mg/dL (70-105); Potassium 4.6 mmol/L (3.5-5.1); Sodium 139 mmol/L (136-145)
[2018-09-26] MEDS: Famotidine 20 MG TAB PO SCH ×2 (09:39→20:29)
[2018-09-26] MEDS: Ziprasidone 20 MG CAP PO SCH (09:39)
[2018-09-26] MEDS: Enoxaparin Sodium 40 MG/0.4 ML SYRINGE SC SCH (09:39)
[2018-09-26] MEDS: Vancomycin HCl 1.25 GM in Sodium Chloride 0.9% 250 ML 250 ML IVPB SCH ×2 (09:39→20:29)
[2018-09-26] MEDS: Acetaminophen 325 MG TAB PO PRN ×2 (09:52→20:39)
[2018-09-26] MEDS: Morphine 2 MG/ML SYRINGE SLOW IVP PRN (10:30)
[2018-09-26] MEDS ORDERED: Amlodipine 5 MG TAB PO SCH (15:00)
--- NOTE | 2018-09-26 15:04 | PDOC.PN ---
- Subjective Encounter Start Date: 09/26/18 Encounter Start Time: 15:02 Subjective: No new problem. getting IV antibiotic. -: Denied fever. foot pain has improved. - Objective Resuscitation Status - Order Detail: 09/19/18 18:08 Resuscitation Status Routine Resuscitation Status: FULL: Full Resuscitation Vital Signs & Weight: Vital Signs (12 hours) Temp Pulse Resp BP Pulse Ox 09/26/18 11:30 98.5 F 88 14 134/93 H 96 09/26/18 08:00 99 09/26/18 06:04 97.3 F L 72 18 159/106 H 99 Weight Admit Weight 206 lb 8 oz Weight 206 lb 8 oz I&O: 09/25/18 09/26/18 09/27/18 06:59 06:59 06:59 Intake Total 2580 Output Total 2850 0 Balance -270 0 Result Diagrams: 09/26/18 05:26 09/26/18 05:26 Phys Exam - Physical Examination Constitutional: NAD HEENT: PERRLA, moist MMs Neck: no JVD, supple Respiratory: no wheezing, no rales, no rhonchi Cardiovascular: RRR, no significant murmur Gastrointestinal: soft, non-tender, no distention, positive bowel sounds Musculoskeletal: no edema Right foot dressing noted Neurological: non-focal, moves all 4 limbs Psychiatric: A&O x 3 Dx/Plan (1) MRSA (methicillin resistant Staphylococcus aureus) infection Code(s): A49.02 - METHICILLIN RESIS STAPH INFECTION, UNSP SITE Status: Acute (2) Foot abscess, right Code(s): L02.611 - CUTANEOUS ABSCESS OF RIGHT FOOT Status: Acute Comment: s/ p I&D with debridement, continue IV antibiotics as below (3) HTN (hypertension) Code(s): I10 - ESSENTIAL (PRIMARY) HYPERTENSION Status: Chronic Qualifiers: Hypertension type: essential hypertension Qualified Code(s): I10 - Essential (primary) hypertension Comment: controlled (4) Obesity (BMI 30-39.9) Code(s): E66.9 - OBESITY, UNSPECIFIED Status: Chronic (5) Schizoaffective disorder Code(s): F25.9 - SCHIZOAFFECTIVE DISORDER, UNSPECIFIED Status: Chronic Qualifiers: Schizoaffective disorder type: unspecified Qualified Code(s): F25.9 - Schizoaffective disorder, unspecified Comment: stable (6) COPD (chronic obstructive pulmonary disease) Status: Suspected Qualifiers: COPD type: unspecified COPD Qualified Code(s): J44.9 - Chronic obstructive pulmonary disease, unspecified (7) Hepatitis C Code(s): B19.20 - UNSPECIFIED VIRAL HEPATITIS C WITHOUT HEPATIC COMA Status: Suspected Qualifiers: Viral hepatitis chronicity: chronic Hepatic coma status: without hepatic coma Qualified Code(s): B18.2 - Chronic viral hepatitis C (8) Toe fracture, right Code(s): S92.911A - UNSP FRACTURE OF RIGHT TOE(S), INIT FOR CLOS FX Status: Acute (9) Seizure Code(s): R56.9 - UNSPECIFIED CONVULSIONS Status: Acute - Plan Start lisinopril 5 mg daily and coreg 3.125 mg bid for HTN -: Continue IV vancomycin as directed by ID. -: DC ibuprofen -: Awaiting abx choice, route and durration from ID specialist -: Increase activity. Follow renala function with starting of lisinopril * .
[2018-09-26] MEDS ORDERED: Lisinopril 5 MG TAB PO SCH (15:15)
[2018-09-26] MEDS: Carvedilol 3.125 MG TAB PO SCH (20:29)
[2018-09-27] MEDS: HYDROcodone/Acetaminophen 5/325 mg Tablet PO PRN ×3 (05:57→20:50)
[2018-09-27 07:14] LABS: Anion Gap 12 mmol/L (10-20); BUN (Urea Nitrogen) 19 mg/dL (9.8-20.1); Calc. Creatinine Clearance 117 mL/min (70-130); Calcium 9.2 mg/dL (7.8-10.44); Carbon Dioxide 20 mmol/L (22-29); Chloride 109 mmol/L (98-107); Estimated GFR-MDRD 71; Glucose 96 mg/dL (70-105); Potassium 4.4 mmol/L (3.5-5.1); Sodium 137 mmol/L (136-145)
[2018-09-27 07:36] LABS: Vancomycin, Trough 20.4 ug/mL
[2018-09-27] MEDS: Carvedilol 3.125 MG TAB PO SCH ×2 (08:31→20:50)
[2018-09-27] MEDS: Famotidine 20 MG TAB PO SCH ×2 (08:31→20:49)
[2018-09-27] MEDS: Ziprasidone 20 MG CAP PO SCH (08:31)
[2018-09-27] MEDS: Enoxaparin Sodium 40 MG/0.4 ML SYRINGE SC SCH (08:31)
[2018-09-27] MEDS: Lisinopril 5 MG TAB PO SCH (08:31)
[2018-09-27] MEDS: Morphine 2 MG/ML SYRINGE SLOW IVP PRN (08:35)
[2018-09-27] MEDS ORDERED: Amlodipine 5 MG TAB PO SCH (09:00)
[2018-09-27] MEDS: Vancomycin HCl 1.25 GM in Sodium Chloride 0.9% 250 ML 250 ML IVPB SCH ×2 (10:04→20:50)
--- NOTE | 2018-09-27 14:24 | PDOC.PN ---
- Subjective Encounter Start Date: 09/27/18 Encounter Start Time: 14:23 Subjective: No new problem. -: Denied fever, chest pain or change in bowel habit - Objective Resuscitation Status - Order Detail: 09/19/18 18:08 Resuscitation Status Routine Resuscitation Status: FULL: Full Resuscitation Vital Signs & Weight: Vital Signs (12 hours) Temp Pulse Resp BP BP Pulse Ox 09/27/18 08:31 67 121/83 09/27/18 08:00 94 L 09/27/18 07:53 97.5 F L 67 16 121/83 94 L Weight Admit Weight 206 lb 8 oz Weight 206 lb 8 oz I&O: 09/26/18 09/27/18 09/28/18 06:59 06:59 06:59 Intake Total 3080 200 Output Total 0 Balance 3080 200 Result Diagrams: 09/26/18 05:26 09/27/18 06:31 Phys Exam - Physical Examination Constitutional: NAD HEENT: PERRLA, moist MMs Neck: no JVD, supple Respiratory: no wheezing, clear to auscultation bilateral Cardiovascular: RRR, no significant murmur Gastrointestinal: soft, non-tender, no distention, positive bowel sounds Musculoskeletal: no edema Right foot dressing noted Neurological: non-focal, moves all 4 limbs Psychiatric: A&O x 3 Dx/Plan (1) MRSA (methicillin resistant Staphylococcus aureus) infection Code(s): A49.02 - METHICILLIN RESIS STAPH INFECTION, UNSP SITE Status: Acute (2) Foot abscess, right Code(s): L02.611 - CUTANEOUS ABSCESS OF RIGHT FOOT Status: Acute Comment: s/ p I&D with debridement, continue IV antibiotics as below (3) HTN (hypertension) Code(s): I10 - ESSENTIAL (PRIMARY) HYPERTENSION Status: Chronic Qualifiers: Hypertension type: essential hypertension Qualified Code(s): I10 - Essential (primary) hypertension Comment: controlled (4) Obesity (BMI 30-39.9) Code(s): E66.9 - OBESITY, UNSPECIFIED Status: Chronic (5) Schizoaffective disorder Code(s): F25.9 - SCHIZOAFFECTIVE DISORDER, UNSPECIFIED Status: Chronic Qualifiers: Schizoaffective disorder type: unspecified Qualified Code(s): F25.9 - Schizoaffective disorder, unspecified Comment: stable (6) COPD (chronic obstructive pulmonary disease) Status: Suspected Qualifiers: COPD type: unspecified COPD Qualified Code(s): J44.9 - Chronic obstructive pulmonary disease, unspecified (7) Hepatitis C Code(s): B19.20 - UNSPECIFIED VIRAL HEPATITIS C WITHOUT HEPATIC COMA Status: Suspected Qualifiers: Viral hepatitis chronicity: chronic Hepatic coma status: without hepatic coma Qualified Code(s): B18.2 - Chronic viral hepatitis C (8) Toe fracture, right Code(s): S92.911A - UNSP FRACTURE OF RIGHT TOE(S), INIT FOR CLOS FX Status: Acute (9) Seizure Code(s): R56.9 - UNSPECIFIED CONVULSIONS Status: Acute - Plan Continue IV vancomycin as per ID. -: for possible discharge on saturday. -: discharge Abx choice, route and duration as per ID. * .
[2018-09-28] MEDS: HYDROcodone/Acetaminophen 5/325 mg Tablet PO PRN ×4 (06:34→21:55)
[2018-09-28] MEDS: Famotidine 20 MG TAB PO SCH ×2 (08:36→20:48)
[2018-09-28] MEDS: Lisinopril 5 MG TAB PO SCH (08:36)
[2018-09-28] MEDS: Acetaminophen 325 MG TAB PO PRN (08:36)
[2018-09-28] MEDS: Carvedilol 3.125 MG TAB PO SCH ×2 (08:36→20:48)
[2018-09-28] MEDS: Ziprasidone 20 MG CAP PO SCH (08:36)
[2018-09-28] MEDS: Enoxaparin Sodium 40 MG/0.4 ML SYRINGE SC SCH (08:37)
[2018-09-28] MEDS: Vancomycin HCl 1.25 GM in Sodium Chloride 0.9% 250 ML 250 ML IVPB SCH ×2 (08:41→20:48)
--- NOTE | 2018-09-28 11:01 | PRG ---
DATE OF SERVICE: 09/28/2018 SUBJECTIVE: The patient is seen and examined at the bedside. She still has quite a bit of nausea and abdominal discomfort. OBJECTIVE: VITAL SIGNS: Blood pressure is 165/94, pulse is 65, temperature is 96.5, respiratory rate is 18, and O2 saturation is 95% on room air. HEENT: Head is atraumatic and normocephalic. Eyes are PERRLA. Sclerae are nonicteric. Oral mucosa is moist. NECK: Supple. LUNGS: Clear. HEART: S1 and S2 normal. ABDOMEN: Soft and nontender. EXTREMITIES: No clubbing, cyanosis, or edema. Dressing on her right foot in the mid portion of the foot. LABORATORY DATA: None. IMPRESSION: 1. Methicillin-resistant Staphylococcus aureus of the right foot. 2. Foot abscess status post incision and drainage with debridement. 3. Hypertension. 4. Obesity. 5. Schizoaffective disorder. 6. Chronic obstructive pulmonary disease, chronic, stable. 7. Hepatitis C, it is a questionable diagnosis. 8. Schizophrenia. 9. Bipolar disorder. PLAN: Plan is to continue her IV antibiotic and continue wound care. Continue current regimen and the patient should be able to go home in the next 24 to 48 hours on oral regimen with doxycycline and rifampin for 1 month. Job ID: [id number]
[2018-09-28] MEDS: Morphine 2 MG/ML SYRINGE SLOW IVP PRN (12:39)
[2018-09-29] MEDS: HYDROcodone/Acetaminophen 5/325 mg Tablet PO PRN (02:49)
[2018-09-29 08:06] VITALS: BP 146/96; TEMP 98.2
[2018-09-29] MEDS: Enoxaparin Sodium 40 MG/0.4 ML SYRINGE SC SCH (08:21)
[2018-09-29] MEDS: Acetaminophen 325 MG TAB PO PRN ×2 (08:22→16:56)
[2018-09-29] MEDS: Lisinopril 5 MG TAB PO SCH (08:22)
[2018-09-29] MEDS: Carvedilol 3.125 MG TAB PO SCH (08:22)
[2018-09-29] MEDS: Famotidine 20 MG TAB PO SCH (08:22)
[2018-09-29] MEDS: Ziprasidone 20 MG CAP PO SCH (09:39)
[2018-09-29] MEDS: Morphine 2 MG/ML SYRINGE SLOW IVP PRN (11:16)
[2018-09-29 11:19] LABS: Vancomycin, Trough 15.5 ug/mL
--- NOTE | 2018-09-29 11:33 | PRG ---
DATE OF SERVICE: 09/29/2018 SUBJECTIVE: Ms. Weller is hospital day #11 and postoperative day #10 from incision and drainage of a large right foot abscess. This is secondary to MRSA. A Lynch drain is still in place, that loops between the plantar and dorsal aspects of her foot. She has been on vancomycin appropriately. She has been afebrile. Wound care is being performed. OBJECTIVE: VITAL SIGNS: On examination today, she is afebrile. Vital Signs: Normal. Her foot is examined and it is somewhat less swollen than it was previously. There is no obvious purulent drainage. There was a small area of swelling on the plantar aspect of the foot distal to the opening. When I pressed on this, there was a small amount of purulent fluid that was expressed. I used a Q-tip to open up a small tract that is superficial to the to the fascia. She was histrionic with her demonstration of discomfort with this. It was a relatively small tract and no further purulence could be expressed. I recommended placing a silver-impregnated rope into this tract and then gauze on the rest of the wound. ASSESSMENT: The patient with a severe right foot infection. PLAN: She has been on IV antibiotics for 10 days following her incision, drainage, and debridement. There is nothing else surgical to do. She requires continued course of the antibiotics. I am not certain what the discharge plans are her for. I would not plan to remove the Taty drain until she is two weeks out, which would actually be at the end of this week. I was planning on doing this outpatient in my office, but if she is still here, then I will remove it while she is here in the hospital. Job ID: [id number]
[2018-09-29] MEDS: Vancomycin HCl 1.25 GM in Sodium Chloride 0.9% 250 ML 250 ML IVPB SCH (13:06)
--- NOTE | 2018-09-30 06:19 | DIS ---
DATE OF ADMISSION: 09/19/2018 DATE OF DISCHARGE: 09/29/2018 DIAGNOSES AT THE TIME OF DISCHARGE: 1. Methicillin-resistant Staphylococcus aureus foot abscess on the right side, status post incision and drainage with debridement. 2. Hypertension. 3. Obesity. 4. Schizoaffective disorder. 5. Chronic obstructive pulmonary disease, chronic, stable. 6. Hepatitis C. 7. Schizophrenia. 8. Bipolar disorder. 9. Right toe fracture. 10. History of seizures. CONSULTANTS: Dr. Billy Bal, General Surgery. Dr. Calvin Baker, Infectious Diseases. PROCEDURE: Extensive right foot abscess with a large volume of purulent material in the deep space of the right foot, which was incised and drained of nonviable tissue. Extensive irrigation and placement of a [place] drain were done on September 19, 2018. HOSPITAL COURSE: The patient is a 53-year-old female with history of dropping a dresser over her right foot in the forefoot area at [facility] where she was found to have right foot Cholo fracture at the base of the second phalanx of the right foot. Apparently, she developed a blister which did not rupture and gradually became bigger with increased swelling around the area. She had excruciating pain and came to the emergency room for further evaluation. While in the emergency room, she was tachycardic. Her white count was elevated at 18,000, hemoglobin was 12, hematocrit 37, platelet count 259,000, and she had 82% of neutrophils. Her lactic acid was up to 2.5. X-ray of the right foot showed stable appearance chip-type fracture at the medial base of the proximal phalanx, the second toe with dorsal soft tissue swelling and incidental bipartite lateral first metatarsophalangeal joint sesamoid. Was admitted to the hospital to the medical floor. She was placed on vancomycin and cefepime, and morphine and Motrin for the pain control. Dr. Bal did incision and drainage of the right foot abscess with debridement of nonviable tissue, extensive irrigation, and placement of a [place] drain. The patient was seen by Dr. Baker, who recommended antibiotic regimen. She underwent MRI of the right foot, which showed. 1. Residual abscess seen within the intrinsic musculature of the plantar aspect of the forefoot. 2. Extensive cellulitis and myositis of the mid foot and forefoot. 3. Abnormal signal and enhancement involving the proximal shaft and base of the fourth metatarsal which could reflect some residual osteitis from the patient's prior trauma. The only organism which was retrieved from this site was MRSA, so the patient was continued on IV vancomycin during this hospitalization and today she is discharged home with oral antibiotic therapy which is going to include doxycycline 100 mg twice a day for one month and rifampin 300 mg twice a day for one month. Her other home medications are the same what she was taking prior to this hospitalization, which are Latuda 20 mg once a day, Claritin 10 mg once a day, lisinopril/hydrochlorothiazide 20/25 mg tablet one a day, trazodone 50 mg at bedtime, piroxicam 10 mg once a day, Nystatin topical q.i.d., nicotine patch one patch one a day, gabapentin 300 mg three times a day, furosemide 20 mg twice a day, calcium polycarbophil 625 mg twice a day, Tylenol p.r.n. She is going to stay on heart healthy diet. ACTIVITIES: We advised not to put much pressure on this foot until it has healed properly. She is supposed to follow up with Dr. Bal, he is going to remove her Taty drain in 10 days, and she will follow up with Dr. Baker in 1 month who is offering her additional treatment for her hepatitis C. She seems to be doing quite well. Her blood pressure is 146/96, pulse is 60, temperature is 98.2, respirations 18, and O2 saturation is 99% on room air. She is seen and examined before she is discharged and the discharge time is less than 30 minutes. Job ID: [id number]
--- NOTE | 2018-10-01 07:54 | PQF ---
[facility] Telephonic Nurse Case Manager Crystal Reports Winform Viewer CECIL VILLEGAS, NELSON MCCANN MD [id number] CLINICAL DOCUMENTATION CLARIFICATION FORM: POST DISCHARGE Addendum to original discharge summary date: ____ Late entry note date: __ DATE: 10/01/2018 ATTN: Jonathan Howard Please exercise your independent, professional judgment in responding to the clarification form. Clinical indicators are provided on the bottom of this form for your review Could you please further identify the type and depth of debridement done on for this patient? Please check appropriate box(s): [x ] Excisional Debridement: [ x ] Excised [ ] Cut away [ ] Other: Depth / layer: (deepest layer of debridement): [ ] Skin[ ] SubQ Tissue [ ] Fascia [ x ] Muscle [ ] Tendon [ ] Bone Appearance of wound: (e.g., down to fresh bleeding tissue, etc.)___ Margins: (please specify): / __3 cm___ x ___4 cm__ x _4 cm____ Instruments used: [ x ] Scissors [ x] Scalpel [ ] Curette [ ] Soft tissue clipper [ ] Other: [ ] Non-excisional Debridement: (Removal by flushing, brushing, chemical, or washing) Depth / layer: (deepest layer of debridement): [ ] Skin[ ] Subcutaneous [ ] Fascia [ ] Muscle [ ] Tendon [ ] Bone [ ] Other procedure diagnosis [ ] Unable to determine For continuity of documentation, please document condition throughout progress notes and discharge summary. Thank You. CLINICAL INDICATORS - SIGNS / SYMPTOMS / LABS - Op Report 09/[address] Bal - Procedure performed: Incision and drainage of right foot abscess with debridement of nonviable tissue, extensive irrigation, and placement of Gunter drain. -Operative Report 09/[address] Bal- devitalized tissue was sharply debided. The digital exploration was carried into the deep space with the bulk of the abscess, deep to the plantar fascia. -Operative Report 09/[address] Bal - I gauze debrided the devitalized tissue of skin of plantar aspect. There was no bleeding from this site. I debrided the nonviable underlying tissue. RISK FACTORS Obesity -Hospitalist PN by DR. Barnes 09/20 pg.2 Hypertension- Hospitalist PN by DR. Barnes 09/20 pg.2 Diabetes- PN by pg.1 09/24 Severe infection of right foot- PN by pg.1 09/24 TREATMENTS: Incision and Drainage and debridement - PN by pg.1 09/24 Vancomycin 1.5gm IV- Medication Cefepime 1gm IV- Medication Wound Dressing PN by Dr. Newsome 09/28 (This form is maintained as a part of the permanent medical record) 2014 [employer]. All Rights Reserved [email or web address] [email or web address] [not provided] MTDD
== END 2018-09-29 18:10 | disposition home or self-care (01) | DRG 501 ==
LOC: ERS 14:53 → T4-B 17:27
PROVIDERS: ADMIT Internal Medicine; ATTEND Internal Medicine
PROC: 0KBV0ZZ Excision of Right Foot Muscle, Open Approach (ICD-10-PCS; principal; 2018-09-19)
PROC: 0K9 Muscles, Drainage (ICD-10-PCS; 2018-09-19)
DX: M60.073 Infective myositis, right foot (principal); L03.115 Cellulitis of right lower limb; L02.611 Cutaneous abscess of right foot; F17.210 Nicotine dependence, cigarettes, uncomplicated; F41.9 Anxiety disorder, unspecified; F31.9 Bipolar disorder, unspecified; E66.9 Obesity, unspecified; E11.9 Type 2 diabetes mellitus without complications; I10 Essential (primary) hypertension; J44.9 Chronic obstructive pulmonary disease, unspecified; F25.9 Schizoaffective disorder, unspecified; B95.62 Methicillin resistant Staphylococcus aureus infection as the cause of diseases classified elsewhere; B18.2 Chronic viral hepatitis C; S92.404A Nondisplaced unspecified fracture of right great toe, initial encounter for closed fracture; Z88.0 Allergy status to penicillin; Z88.1 Allergy status to other antibiotic agents; Z88.8 Allergy status to other drugs, medicaments and biological substances; Z98.51 Tubal ligation status
CPT/HCPCS: 36415; 36416; 70360; 80048; 80053; 80202; 82550; 83036; 83605; 85025; 85652; 86780; 86803; 87040; 87070; 87077; 87186; 87205; 87389; 87522; 93005; 93010; 96361; 96365; 96367; 96375; J0692; J1650; J2270; J2405; J3010; J3370; J7050

== ENCOUNTER 2018-10-17 07:38 | Emergency (ER) | payer SELFPAY ==
[2018-10-17] MEDS ORDERED: Acetaminophen 500 MG TAB ONE (08:51)
== END 2018-10-17 09:02 | disposition home or self-care (01) ==
LOC: ERS 07:38
DX: T81.89XA Other complications of procedures, not elsewhere classified, initial encounter (principal); E11.22 Type 2 diabetes mellitus with diabetic chronic kidney disease; I13.2 Hypertensive heart and chronic kidney disease with heart failure and with stage 5 chronic kidney disease, or end stage renal disease; I50.9 Heart failure, unspecified; N18.6 End stage renal disease; F41.9 Anxiety disorder, unspecified; F31.9 Bipolar disorder, unspecified; F20.9 Schizophrenia, unspecified; F17.210 Nicotine dependence, cigarettes, uncomplicated; Z79.891 Long term (current) use of opiate analgesic; Z79.899 Other long term (current) drug therapy
CPT/HCPCS: 99283

== ENCOUNTER 2018-11-11 09:13 | Emergency (ER) | payer OTHER, SELFPAY ==
[2018-11-11 11:15] LABS: #Basophils 0.1 thou/uL (0.0-0.2); #Eosinphils 0.1 thou/uL (0.0-0.7); #Lymphocytes 2.1 thou/uL (1.20-3.40); #Monocytes 0.3 thou/uL (0.11-0.59); #Neutrophils 2.5 thou/uL (1.40-6.50); %Basophils 2.1 % (0.0-1.0); %Eosinophils 1.6 % (0.0-10.0); %Monocytes 6.4 % (0.0-10.0); %Neutrophils 48.9 % (42.0-75.0); Hemoglobin 14.7 g/dL (12.0-16.0); Mean Corpuscular HGB CONC 31.2 g/dL (32.0-36.0); Mean Corpuscular Volume 92.7 fL (78.0-98.0); Mean Platelet Volume 9.4 fL (7.4-10.4); Platelet Count 200 thou/uL (130-400); RBC Distribution Width 12.7 % (11.5-14.5); Red Blood Cell (RBC) Count 5.08 mill/uL (4.20-5.40)
[2018-11-11 11:21] LABS: Bilirubin Negative (Negative); Blood, Urine Negative (Negative); Clarity CLEAR (Clear); Glucose, Urine (Dipstick) Negative (Negative); Leukocyte Negative (Negative); Nitrite Negative (Negative); Protein, Urine (Dipstick) Negative (Neg-Trace); Specific Gravity, Urine 1.014 (1.002-1.036); Urobilinogen 0.2 mg/dL (0.2-1.0)
[2018-11-11] MEDS ORDERED: Morphine 4 MG/ML VIAL ONE (11:27)
[2018-11-11] MEDS ORDERED: Ondansetron ODT 4 MG TAB ONE (11:27)
[2018-11-11 11:32] LABS: ALT (SGPT) 27 U/L (8-55); AST (SGOT) 25 U/L (5-34); Albumin 3.6 g/dL (3.5-5.0); Alkaline Phosphatase 129 U/L (40-150); Anion Gap 14 mmol/L (10-20); BUN (Urea Nitrogen) 9 mg/dL (9.8-20.1); Bilirubin, Total 0.2 mg/dL (0.2-1.2); Calc. Creatinine Clearance 0 mL/min (70-130); Calcium 9.4 mg/dL (7.8-10.44); Carbon Dioxide 19 mmol/L (22-29); Chloride 111 mmol/L (98-107); Estimated GFR-MDRD 84; Globulin 4.2 g/dL (2.4-3.5); Glucose 80 mg/dL (70-105); Lipase 37 U/L (8-78); Potassium 4.5 mmol/L (3.5-5.1); Protein, Total 7.8 g/dL (6.0-8.3); Sodium 139 mmol/L (136-145)
--- NOTE | 2018-11-11 11:59 | CT ---
EXAM: Abdomen and pelvic CT scan without contrast: HISTORY: Emergency exam, left-sided abdominal pain recent onset COMPARISON: None FINDINGS: Mild volume loss Liver: Unremarkable. Gallbladder: Moderate distention Pancreas: Unremarkable Spleen: Unremarkable. Adrenal glands: Unremarkable. Kidneys: No renal calculus or acute obstruction. There is slight prominence, localized to the supe rior pole left kidney without inflammation or source for obstruction. No ureteral or bladder calculi. Bowel: Limited without enteric or IV contrast Urinary Bladder: The urinary bladder is unremarkable. Adenopathy: No adenopathy within the abdomen or pelvis. Free Air: No free air. Ascites: No ascites. Osseous structures: No acute osseous abnormalities. IMPRESSION: No acute abnormality identified by noncontrast CT imaging. There is slight asymmetric prominence of t he left renal collecting system at the level of the superior pole, without signs for acute obstruction. No urolithiasis is identified. Moderate distention of the gallbladder. Correlate clinically.
== END 2018-11-11 13:12 | disposition home or self-care (01) ==
LOC: ERS 09:13
DX: K80.50 Calculus of bile duct without cholangitis or cholecystitis without obstruction (principal); R11.2 Nausea with vomiting, unspecified; I13.2 Hypertensive heart and chronic kidney disease with heart failure and with stage 5 chronic kidney disease, or end stage renal disease; E11.22 Type 2 diabetes mellitus with diabetic chronic kidney disease; N18.6 End stage renal disease; I50.9 Heart failure, unspecified; F41.9 Anxiety disorder, unspecified; F31.9 Bipolar disorder, unspecified; F20.9 Schizophrenia, unspecified; F17.210 Nicotine dependence, cigarettes, uncomplicated
CPT/HCPCS: 36415; 74176; 80053; 81003; 83690; 85025; 93005; 96372; J2270; Q0162

== ENCOUNTER 2018-11-26 11:43 | Emergency (ER) | payer OTHER ==
[2018-11-26 13:06] LABS: #Eosinphils 0.1 thou/uL (0.0-0.7); #Monocytes 0.4 thou/uL (0.11-0.59); #Neutrophils 3.9 thou/uL (1.40-6.50); %Basophils 0.3 % (0.0-1.0); %Eosinophils 0.8 % (0.0-10.0); %Lymphocytes 30.9 % (21.0-51.0); %Monocytes 6.7 % (0.0-10.0); %Neutrophils 61.2 % (42.0-75.0); Hemoglobin 14.3 g/dL (12.0-16.0); Mean Corpuscular HGB CONC 33.7 g/dL (32.0-36.0); Mean Corpuscular Volume 88.9 fL (78.0-98.0); Mean Platelet Volume 9.7 fL (7.4-10.4); Platelet Count 150 thou/uL (130-400); RBC Distribution Width 12.5 % (11.5-14.5); Red Blood Cell (RBC) Count 4.76 mill/uL (4.20-5.40); White Blood Cell (WBC) Count 6.4 thou/uL (4.8-10.8)
--- NOTE | 2018-11-26 13:26 | RAD ---
PORTABLE CHEST: 11/26/2018 PROVIDED CLINICAL HISTORY: Back pain. COMPARISON: None. FINDINGS: The cardiac and mediastinal silhouette is within normal limits. The lungs appear clear. No pleural fluid or pneumothorax apparent. IMPRESSION: No evidence for an acute cardiopulmonary process. POS: C
[2018-11-26 13:27] LABS: ALT (SGPT) 34 U/L (8-55); AST (SGOT) 27 U/L (5-34); Alkaline Phosphatase 151 U/L (40-150); Anion Gap 14 mmol/L (10-20); BUN (Urea Nitrogen) 21 mg/dL (9.8-20.1); Bilirubin, Total 0.3 mg/dL (0.2-1.2); CK (CPK) 209 U/L (29-168); Calc. Creatinine Clearance 0 mL/min (70-130); Calcium 9.5 mg/dL (7.8-10.44); Carbon Dioxide 21 mmol/L (22-29); Chloride 108 mmol/L (98-107); Estimated GFR-MDRD 59; Globulin 3.4 g/dL (2.4-3.5); Glucose 107 mg/dL (70-105); Lipase 70 U/L (8-78); Potassium 4.1 mmol/L (3.5-5.1); Protein, Total 7.4 g/dL (6.0-8.3); Sodium 139 mmol/L (136-145)
[2018-11-26] MEDS ORDERED: Ondansetron PF 4 MG/2 ML Vial ONE (13:31)
[2018-11-26] MEDS ORDERED: Morphine 4 MG/ML VIAL ONE (13:31)
--- NOTE | 2018-11-26 15:00 | ULT ---
RIGHT UPPER QUADRANT ULTRASOUND: HISTORY: Right upper quadrant pain. FINDINGS: The liver, gallbladder, right kidney, and visualized portions of the pancreas are unremarkable. The common duct measures 2 mm in diameter. No free fluid is seen in the White pouch. IMPRESSION: Normal examination. POS: [facility]
[2018-11-26 15:53] LABS: Bilirubin Negative (Negative); Blood, Urine Negative (Negative); Clarity Clear (Clear); Glucose, Urine (Dipstick) Negative (Negative); Leukocyte Negative (Negative); Nitrite Negative (Negative); Protein, Urine (Dipstick) Negative (Neg-Trace); Urobilinogen 0.2 mg/dL (0.2-1.0)
== END 2018-11-26 17:41 | disposition home or self-care (01) ==
LOC: ERS 11:43
DX: R10.10 Upper abdominal pain, unspecified (principal); E11.9 Type 2 diabetes mellitus without complications; I10 Essential (primary) hypertension; F41.9 Anxiety disorder, unspecified; F31.9 Bipolar disorder, unspecified; F20.9 Schizophrenia, unspecified; Z79.899 Other long term (current) drug therapy
CPT/HCPCS: 36415; 71045; 76705; 80053; 81003; 82550; 83690; 83880; 84484; 85025; 87086; 93005; 96361; 96374; 96375; J2270; J2405

== ENCOUNTER 2018-12-01 08:42 | Emergency (ER) | payer OTHER ==
[2018-12-01] MEDS ORDERED: Proparacaine 0.5% Opth 15 ML BOT ONE (08:59)
[2018-12-01] MEDS ORDERED: Fluorescein Opthalmic Strip ONE (08:59)
--- NOTE | 2018-12-01 09:13 | RAD ---
Chest one view HISTORY: Chest pain. COMPARISON: 11/26/2018. FINDINGS: Cardiac silhouette is magnified by projection. Pulmonary vasculature is unremarkable. Media stinum is midline. No lobar consolidation or evidence of pneumothorax. IMPRESSION: No active cardiopulmonary disease are demonstrated.
[2018-12-01 09:25] LABS: #Eosinphils 0.1 thou/uL (0.0-0.7); #Lymphocytes 1.5 thou/uL (1.20-3.40); #Monocytes 0.4 thou/uL (0.11-0.59); #Neutrophils 4.5 thou/uL (1.40-6.50); %Basophils 0.4 % (0.0-1.0); %Eosinophils 0.8 % (0.0-10.0); %Lymphocytes 22.7 % (21.0-51.0); %Monocytes 6.3 % (0.0-10.0); %Neutrophils 69.7 % (42.0-75.0); Hemoglobin 14.1 g/dL (12.0-16.0); Mean Corpuscular HGB CONC 32.4 g/dL (32.0-36.0); Mean Corpuscular Hemoglobin 29.3 pg (27.0-31.0); Mean Corpuscular Volume 90.4 fL (78.0-98.0); Mean Platelet Volume 9.5 fL (7.4-10.4); Platelet Count 172 thou/uL (130-400); RBC Distribution Width 12.6 % (11.5-14.5); White Blood Cell (WBC) Count 6.5 thou/uL (4.8-10.8)
--- NOTE | 2018-12-01 09:26 | CT ---
CT head noncontrast HISTORY: Headache. FINDINGS: No comparison. There is no evidence of acute intracranial hemorrhage or infarct. Subtle areas of decreased density w ithin the white matter of each cerebral hemisphere most likely representing chronic ischemic small vessel disease. No mass effect or shift of midline structures. Visualized paranasal sinuses remain we ll-aerated. IMPRESSION: No acute intracranial abnormalities are demonstrated.
[2018-12-01 09:46] LABS: ALT (SGPT) 32 U/L (8-55); AST (SGOT) 25 U/L (5-34); Alkaline Phosphatase 143 U/L (40-150); Anion Gap 12 mmol/L (10-20); BUN (Urea Nitrogen) 12 mg/dL (9.8-20.1); Bilirubin, Total 0.3 mg/dL (0.2-1.2); CK (CPK) 178 U/L (29-168); Calc. Creatinine Clearance 0 mL/min (70-130); Calcium 9.4 mg/dL (7.8-10.44); Carbon Dioxide 23 mmol/L (22-29); Chloride 109 mmol/L (98-107); Estimated GFR-MDRD 70; Globulin 3.3 g/dL (2.4-3.5); Glucose 91 mg/dL (70-105); Potassium 4.7 mmol/L (3.5-5.1); Protein, Total 7.3 g/dL (6.0-8.3); Sodium 139 mmol/L (136-145)
[2018-12-01] MEDS ORDERED: cloNIDine 0.1 MG TAB ONE (10:14)
[2018-12-01] MEDS ORDERED: Ketorolac Tromethamine 60 MG/2 ML VIAL ONE (10:14)
== END 2018-12-01 11:08 | disposition home or self-care (01) ==
LOC: ERS 08:42
DX: R51 Headache (principal); R07.9 Chest pain, unspecified; E11.9 Type 2 diabetes mellitus without complications; I13.0 Hypertensive heart and chronic kidney disease with heart failure and stage 1 through stage 4 chronic kidney disease, or unspecified chronic kidney disease; N18.6 End stage renal disease; I50.9 Heart failure, unspecified; G40.909 Epilepsy, unspecified, not intractable, without status epilepticus; F41.9 Anxiety disorder, unspecified; F31.9 Bipolar disorder, unspecified; F20.9 Schizophrenia, unspecified; Z79.899 Other long term (current) drug therapy
CPT/HCPCS: 36415; 70450; 71045; 80053; 82550; 83880; 84484; 85025; 93005; 96372; J1885

== ENCOUNTER 2018-12-13 09:40 | Emergency (ER) | payer OTHER ==
[2018-12-13 10:03] LABS: #Basophils 0.1 thou/uL (0.0-0.2); #Eosinphils 0.1 thou/uL (0.0-0.7); #Lymphocytes 2.5 thou/uL (1.20-3.40); #Monocytes 0.5 thou/uL (0.11-0.59); #Neutrophils 3.4 thou/uL (1.40-6.50); %Basophils 0.8 % (0.0-1.0); %Eosinophils 1.5 % (0.0-10.0); %Lymphocytes 38.2 % (21.0-51.0); %Neutrophils 52.4 % (42.0-75.0); Hemoglobin 15.6 g/dL (12.0-16.0); Mean Corpuscular HGB CONC 32.9 g/dL (32.0-36.0); Mean Corpuscular Hemoglobin 29.7 pg (27.0-31.0); Mean Corpuscular Volume 90.3 fL (78.0-98.0); Mean Platelet Volume 9.3 fL (7.4-10.4); Platelet Count 185 thou/uL (130-400); RBC Distribution Width 12.8 % (11.5-14.5); Red Blood Cell (RBC) Count 5.24 mill/uL (4.20-5.40); White Blood Cell (WBC) Count 6.6 thou/uL (4.8-10.8)
[2018-12-13] MEDS ORDERED: Morphine 4 MG/ML VIAL ONE (10:12)
[2018-12-13] MEDS ORDERED: Ondansetron PF 4 MG/2 ML Vial ONE (10:12)
[2018-12-13 10:15] LABS: Bilirubin Negative (Negative); Blood, Urine Negative (Negative); Clarity CLEAR (Clear); Glucose, Urine (Dipstick) Negative (Negative); Leukocyte Negative (Negative); Nitrite Negative (Negative); Protein, Urine (Dipstick) Negative (Neg-Trace); Specific Gravity, Urine 1.016 (1.002-1.036); Urobilinogen 0.2 mg/dL (0.2-1.0)
[2018-12-13 10:18] LABS: Pregnancy Test - Urine (BHCG) Negative (Negative); Pregu Control Background? CLEAR/WHITE (CLR/WHITE); Pregu Control Bar Appear? YES (CONTROL BAR); Specific Gravity 1.016 (1.002-1.036)
[2018-12-13 10:25] LABS: ALT (SGPT) 38 U/L (8-55); AST (SGOT) 28 U/L (5-34); Albumin 3.9 g/dL (3.5-5.0); Alkaline Phosphatase 168 U/L (40-150); Anion Gap 11 mmol/L (10-20); BUN (Urea Nitrogen) 11 mg/dL (9.8-20.1); Bilirubin, Total 0.2 mg/dL (0.2-1.2); Calc. Creatinine Clearance 0 mL/min (70-130); Calcium 9.6 mg/dL (7.8-10.44); Carbon Dioxide 23 mmol/L (22-29); Chloride 109 mmol/L (98-107); Estimated GFR-MDRD 73; Globulin 3.9 g/dL (2.4-3.5); Glucose 108 mg/dL (70-105); Lipase 71 U/L (8-78); Potassium 4.6 mmol/L (3.5-5.1); Protein, Total 7.8 g/dL (6.0-8.3); Sodium 138 mmol/L (136-145)
[2018-12-13] MEDS ORDERED: Ketorolac Tromethamine 30 MG/ML VIAL ONE (11:26)
== END 2018-12-13 12:41 | disposition home or self-care (01) ==
LOC: ERS 09:40
DX: R10.9 Unspecified abdominal pain (principal); R10.817 Generalized abdominal tenderness; R19.7 Diarrhea, unspecified; R11.2 Nausea with vomiting, unspecified; E11.9 Type 2 diabetes mellitus without complications; I13.2 Hypertensive heart and chronic kidney disease with heart failure and with stage 5 chronic kidney disease, or end stage renal disease; I50.9 Heart failure, unspecified; N18.6 End stage renal disease; F20.9 Schizophrenia, unspecified; F31.9 Bipolar disorder, unspecified; F41.9 Anxiety disorder, unspecified; Z79.899 Other long term (current) drug therapy
CPT/HCPCS: 36415; 80053; 81003; 81025; 83690; 85025; 96361; 96374; 96375; J1885; J2270; J2405

== ENCOUNTER 2019-01-01 09:24 | Emergency (ER) | payer OTHER ==
[2019-01-01 10:44] LABS: #Lymphocytes 0.6 thou/uL (1.20-3.40); #Monocytes 0.2 thou/uL (0.11-0.59); #Neutrophils 6.5 thou/uL (1.40-6.50); %Basophils 0.3 % (0.0-1.0); %Eosinophils 0.3 % (0.0-10.0); %Lymphocytes 8.5 % (21.0-51.0); %Monocytes 2.5 % (0.0-10.0); %Neutrophils 88.4 % (42.0-75.0); Hemoglobin 14.4 g/dL (12.0-16.0); Mean Corpuscular HGB CONC 32.6 g/dL (32.0-36.0); Mean Platelet Volume 10.1 fL (7.4-10.4); Platelet Count 157 thou/uL (130-400); RBC Distribution Width 12.9 % (11.5-14.5); Red Blood Cell (RBC) Count 4.98 mill/uL (4.20-5.40); White Blood Cell (WBC) Count 7.4 thou/uL (4.8-10.8)
[2019-01-01] MEDS ORDERED: Ondansetron PF 4 MG/2 ML Vial ONE (11:02)
[2019-01-01 11:15] LABS: ALT (SGPT) 45 U/L (8-55); AST (SGOT) 39 U/L (5-34); Albumin 3.8 g/dL (3.5-5.0); Alkaline Phosphatase 142 U/L (40-150); Anion Gap 14 mmol/L (10-20); BUN (Urea Nitrogen) 18 mg/dL (9.8-20.1); Bilirubin, Total 0.4 mg/dL (0.2-1.2); Calc. Creatinine Clearance 0 mL/min (70-130); Calcium 9.1 mg/dL (7.8-10.44); Carbon Dioxide 21 mmol/L (22-29); Chloride 105 mmol/L (98-107); Estimated GFR-MDRD 71; Globulin 4.3 g/dL (2.4-3.5); Glucose 95 mg/dL (70-105); Lipase 33 U/L (8-78); Potassium 4.9 mmol/L (3.5-5.1); Protein, Total 8.1 g/dL (6.0-8.3); Sodium 135 mmol/L (136-145)
== END 2019-01-01 11:47 | disposition home or self-care (01) ==
LOC: ERS 09:24
DX: K52.9 Noninfective gastroenteritis and colitis, unspecified (principal); E86.0 Dehydration; F41.9 Anxiety disorder, unspecified; F31.9 Bipolar disorder, unspecified; F20.9 Schizophrenia, unspecified; E11.9 Type 2 diabetes mellitus without complications; G40.909 Epilepsy, unspecified, not intractable, without status epilepticus; I13.2 Hypertensive heart and chronic kidney disease with heart failure and with stage 5 chronic kidney disease, or end stage renal disease; I50.9 Heart failure, unspecified; N18.6 End stage renal disease
CPT/HCPCS: 36416; 80053; 83690; 85025; 96361; 96374; J2405

== ENCOUNTER 2019-01-14 13:02 | Emergency (ER) | payer OTHER | END 2019-01-14 15:14 | disposition left against medical advice (07) | LOC: ERS 13:02 | DX: M54.6 Pain in thoracic spine (principal) | CPT/HCPCS: 99283 ==

== ENCOUNTER 2019-03-26 10:31 | Emergency (ER) | payer OTHER ==
[2019-03-26 11:49] LABS: #Basophils 0.1 thou/uL (0.0-0.2); #Eosinphils 0.1 thou/uL (0.0-0.7); #Lymphocytes 2.6 thou/uL (1.20-3.40); #Monocytes 0.6 thou/uL (0.11-0.59); #Neutrophils 4.7 thou/uL (1.40-6.50); %Basophils 1.1 % (0.0-1.0); %Eosinophils 1.7 % (0.0-10.0); %Lymphocytes 32.2 % (21.0-51.0); %Monocytes 7.3 % (0.0-10.0); %Neutrophils 57.8 % (42.0-75.0); Hemoglobin 14.5 g/dL (12.0-16.0); Mean Corpuscular HGB CONC 33.8 g/dL (32.0-36.0); Mean Corpuscular Hemoglobin 30.1 pg (27.0-31.0); Mean Platelet Volume 9.3 fL (7.4-10.4); Platelet Count 160 thou/uL (130-400); RBC Distribution Width 12.1 % (11.5-14.5); Red Blood Cell (RBC) Count 4.82 mill/uL (4.20-5.40); White Blood Cell (WBC) Count 8.1 thou/uL (4.8-10.8)
[2019-03-26 12:10] LABS: ALT (SGPT) 22 U/L (8-55); AST (SGOT) 17 U/L (5-34); Albumin 3.9 g/dL (3.5-5.0); Alkaline Phosphatase 124 U/L (40-150); Anion Gap 13 mmol/L (10-20); BUN (Urea Nitrogen) 23 mg/dL (9.8-20.1); Bilirubin, Total 0.2 mg/dL (0.2-1.2); Calc. Creatinine Clearance 0 mL/min (70-130); Calcium 9.3 mg/dL (7.8-10.44); Carbon Dioxide 20 mmol/L (22-29); Chloride 110 mmol/L (98-107); Estimated GFR-MDRD 67; Globulin 3.8 g/dL (2.4-3.5); Glucose 88 mg/dL (70-105); Potassium 4.2 mmol/L (3.5-5.1); Protein, Total 7.7 g/dL (6.0-8.3); Sodium 139 mmol/L (136-145)
[2019-03-26] MEDS ORDERED: Ondansetron ODT 4 MG TAB ONE (12:42)
== END 2019-03-26 12:42 | disposition home or self-care (01) ==
LOC: ERS 10:31
DX: K52.9 Noninfective gastroenteritis and colitis, unspecified (principal); I48.91 Unspecified atrial fibrillation; E10.9 Type 1 diabetes mellitus without complications; I10 Essential (primary) hypertension; F41.9 Anxiety disorder, unspecified; F31.9 Bipolar disorder, unspecified; F20.9 Schizophrenia, unspecified; F17.210 Nicotine dependence, cigarettes, uncomplicated
CPT/HCPCS: 36415; 80053; 85025; 86850; 86900; 86901; 99284; Q0162